=== PATIENT | female | born 1930 | race Caucasian/White ===

== ENCOUNTER → 2017-03-17 | Outpatient (CLI) | payer OTHER | LOC: CIMAGING 11:32 | PROVIDERS: ATTEND Internal Medicine | DX: M51.36 Other intervertebral disc degeneration, lumbar region (principal); M51.35 Other intervertebral disc degeneration, thoracolumbar region; M43.16 Spondylolisthesis, lumbar region; M43.17 Spondylolisthesis, lumbosacral region | CPT/HCPCS: 72100-PO; 73502-PO ==

== ENCOUNTER → 2017-05-14 | Outpatient (CLI) | payer OTHER | LOC: FIMAGING 14:38 | PROVIDERS: ATTEND Internal Medicine | DX: Z12.31 Encounter for screening mammogram for malignant neoplasm of breast (principal) | CPT/HCPCS: G0202 ==

== ENCOUNTER 2017-12-18 14:41 | Emergency (ER) | payer OTHER ==
[2017-12-18 14:51] VITALS: RESP 16; TEMP 98.1; O2SAT 96
--- NOTE | 2017-12-18 14:55 | EDPHY ---
H & P Stated Complaint: slipped on ice, hit head, LOC HPI/ROS: CC: slip and fall HPI: This 87 year old female presents to the ER today by POV (drove herself) after slipping on the "at risk" ramp at her home where she lives independently. She states she went out to grain picker her newspaper around 9:30 a.m. and did not realize the ramp was slick. She fell and hit the back of her head. When she went back into the house she felt that there had been a time lapse of a short duration and she did not remember coming back into the house very clearly. She called to make an appointment with her primary care provider and they advised her to be seen in the emergency department. She has some posterior scalp discomfort. She takes low-dose aspirin every other day, her last dose being the day before yesterday. She denies any preceding symptoms such as headache, changes in vision, numbness, tingling, weakness, chest pain, palpitations, shortness of breath, or abdominal pain. She denies recent illness. She denies urinary symptoms. She does not have changes in her vision or a headache at the present time. She has no open wounds. She denies neck pain or extremity injury. She has chronic low back issues with left leg pain for which she has received three injections. Her low back feels "tired." since the fall. REVIEW OF SYSTEMS: Constitutional: No fever, no chills. Eyes: No discharge. ENT: No sore throat. Respiratory: No cough, no shortness of breath. Cardiac: No chest pain, no palpitations. Gastrointestinal: No abdominal pain, no vomiting. Genitourinary: No hematuria or dysuria. Musculoskeletal: Left hand tingling on and off in the mornings for the last few weeks. Chronic pain lateral aspect of left lower leg. Skin: No rashes. Neurological: No headache. Source: Patient Exam Limitations: No limitations - Medical/Surgical History PMH: Past medical history includes hypertension, glaucoma, urinary incontinence, sciatic back pain, macular degeneration, colon cancer in 1974, skin cancer Past surgical history includes hemicolectomy, skin cancer removal Family history significant for mother dying of cirrhosis at age 53 and father dying at age 72 from lung cancer Allergy to sulfa which causes a rash Medications include aspirin, calcium, Lortab prostate, lisinopril, multivitamin , vitamin-D and and an eye supplement Primary care provider is Dr. Serrano Other PMH: hypertension, orthopedic low back injection, - Social History Smoking Status: Never smoked Alcohol Use: Rarely Drug Use: None Additional Social History: . Lives alone. Family in area. - Physical Exam Exam: General Appearance: Alert, anxious. Head: Tenderness and mild STS right posterior scalp. Eyes: Pupils equal and round no pallor or injection. ENT: No hemotympanum. Mucous membranes moist. Neck: No midline tenderness. Back: Kyphoscoliosis. No bony step-offs. Respiratory: There are no retractions, lungs are clear to auscultation. Cardiovascular: Regular rate and rhythm. No murmur. Gastrointestinal: Abdomen is soft and nontender, no masses, bowel sounds normal. Neurological: Awake and alert, sensory and motor exams grossly normal. No focal deficits. Skin: Warm and dry, no rashes. Musculoskeletal: Moveable soft tissue lump c/w lipoma right axilla. No bony abnormality. No hip pain. Extremities are symmetrical, full range of motion. Psychiatric: Patient is oriented X 3, there is no agitation. DIFFERENTIAL DIAGNOSIS: After history and physical exam differential diagnosis was considered for but not limited to: mechanical fall, syncope, head contusion , stroke, intracranial hemorrhage, cervical spine degenerative changes, compression fracture, UTI Constitutional: Initial Vital Signs Temperature (C) 98.1 F 12/18/17 14:43 Heart Rate 114 H 12/18/17 14:43 Respiratory Rate 16 12/18/17 14:43 Blood Pressure 181/87 H 12/18/17 14:43 O2 Sat (%) 96 12/18/17 14:43 O2 Delivery Mode Room Air Allergies/Adverse Reactions: Sulfa (Sulfonamide Antibiotics) Allergy (Verified 12/18/17 14:51) Home Medications: Medication Instructions Recorded Aspirin 12/18/17 Calcium 12/18/17 Latanoprost 12/18/17 Lisinopril 12/18/17 Multi For Her Tablet 12/18/17 VITAMIN D 12/18/17 Medical Decision Making - Diagnostics EKG Interpretation: Normal sinus rhythm, heart rate 85, normal intervals, probable old inferior infarct. No EKG available for comparison. Imaging Results: Head CT showed a small high posterior scalp hematoma, atrophy with minimal white matter disease. Cervical spine CT showed no acute fracture or soft tissue swelling. Severe degenerative disc disease. Lumbar spine/pelvis showed scoliosis, no acute fracture, severe constipation, atherosclerosis. Imaging: Discussed imaging studies w/ call center specialist Radiologist ED Course/Re-evaluation: The patient was seen and examined. Vital signs reviewed. The patient's EKG showed a normal sinus rhythm and an old inferior infarct. No prior EKG was available to me for comparison. She declined blood or urine studies. The patient's head CT showed a small high posterior scalp hematoma as well as atrophy and minimal white matter disease but no other significant findings. Her cervical spine CT was negative for acute fracture, soft tissue swelling, but remarkable for severe degenerative disc disease. Her lumbar spine and pelvic films showed scoliosis, severe constipation and atherosclerosis, no acute fracture. The patient was informed of all of these findings. She was advised to follow up with her primary care provider regarding the old infarct on her EKG, the degenerative changes of her cervical spine, the lipoma in her right axillary region, and her ongoing concerns regarding the continued discomfort in her left lower leg. She continues to be hypertensive in the emergency department and was advised to discuss this with her primary care provider in follow-up next week. She states she has white coat hypertension. She does have a blood pressure cuff at home and was advised she could take an additional 1/2 to 1 tablet of her (20mg) lisinopril should her blood pressure remain in the 190s systolic until she sees her primary care provider. She was advised that despite her negative head CT, that should she developed a headache or visual disturbanc in the next few weeks she should be rechecked immediately. She was also advised to drink plenty of fluids and consider a laxative. Departure - Departure Disposition: Home, Routine, Self-Care Clinical Impression: Fall on same level due to ice and snow, initial encounter, Head contusion, Lipoma of axilla, Constipation, Hypertension Condition: Good Instructions: Fall Prevention for Older Adults (ED), Scalp Contusion in Adults (ED), Lipoma (ED) Additional Instructions: Follow up with your primary care doctor early next week. Your blood pressure is elevated. You may need your blood pressure medication increased. Drink plenty of fluids and consider a laxative for constipation seen on your x-ray. Return to the ER immediately if you have any further problems or concerns as discussed. Referrals: Claudio Kaba MD [Primary Care Provider] - 2-3 days, call for appt.
--- NOTE | 2017-12-18 16:03 | CPEKG ---
Heart Rate: 85 RR Interval: 706 P-R Interval: 124 QRSD Interval: 72 QT Interval: 364 QTC Interval: 433 P Mcdaniels: 33 QRS Mcdaniels: -22 T Wave Mcdaniels: 15 EKG Severity - ABNORMAL ECG - EKG Impression: SINUS RHYTHM EKG Impression: PROBABLE INFERIOR INFARCT, AGE INDETERMINATE Electronically Signed By: Soumya Tillman 20-Dec-2017 00:31:51
[2017-12-18 17:38] VITALS: BP 192/91; PULSE 104
== END 2017-12-18 18:17 | disposition home or self-care (01) ==
LOC: CED 14:41
DX: S00.83XA Contusion of other part of head, initial encounter (principal); K59.00 Constipation, unspecified; I10 Essential (primary) hypertension; D17.9 Benign lipomatous neoplasm, unspecified; Z85.828 Personal history of other malignant neoplasm of skin; Z85.038 Personal history of other malignant neoplasm of large intestine; W01.198A Fall on same level from slipping, tripping and stumbling with subsequent striking against other object, initial encounter
CPT/HCPCS: 70450-PO; 72100-PO; 72125-PO; 72170-PO

== ENCOUNTER 2018-02-10 15:08 | Inpatient (IN) | payer OTHER ==
--- NOTE | 2018-02-10 16:48 | CPEKG ---
Heart Rate: 82 RR Interval: 732 P-R Interval: 112 QRSD Interval: 84 QT Interval: 376 QTC Interval: 439 P Waverly: 28 QRS Waverly: -20 T Wave Waverly: 33 EKG Severity - OTHERWISE NORMAL ECG - EKG Impression: SINUS RHYTHM EKG Impression: BORDERLINE LEFT AXIS DEVIATION Electronically Signed By: Rach Delgadillo 10-Feb-2018 21:07:16
[2018-02-10 16:58] LABS: PLATELET COUNT 187 10^3/uL (150-400)
--- NOTE | 2018-02-10 17:37 | EDPHY ---
H & P Time Seen by Provider: 02/10/18 15:58 HPI/ROS: CHIEF COMPLAINT: Confusion HISTORY OF PRESENT ILLNESS: 87-year-old female presents with a 2 week history of confusion. She slipped and fell 3 weeks ago and struck her head on an icy patch. She was seen at the [facility] and had a negative CT scan of the brain. However since then, her family has noticed that she is not as sharp as usual. She lives in own home and has been able to care for herself, but seems to be sometimes confused and not able to carry on a complex conversation. She denies headache or subsequent fall. She takes aspirin daily. No other anticoagulants. REVIEW OF SYSTEMS: Constitutional: No fever, no chills Eyes: No visual changes ENT: No sore throat Respiratory: No cough, no shortness of breath Cardiac: No chest pain Gastrointestinal: No nausea, no vomiting, no abdominal pain Genitourinary: no dysuria Musculoskeletal: No leg pain or swelling Skin: No rash Neurological: No headache, no numbness, no weakness Psychiatric: No depression Past Medical/Surgical History: Hypertension Social History: Lives alone in own home Smoking Status: Never smoked Physical Exam: General Appearance: Alert, pleasant, does not appear confused Eyes: Pupils equal and round, no conjunctival pallor or injection ENT, Mouth: Mucous membranes moist Neck: Normal inspection Respiratory: Lungs are clear to auscultation Cardiovascular: Regular rate and rhythm Gastrointestinal: Abdomen is soft and nontender Neurological: Alert, oriented x3, cranial nerves II through XII intact, motor 5 /5, sensory intact to light touch, slow and steady gait Skin: Warm and dry, no rash Extremities: Nontender, no pedal edema Psychiatric: Mood and affect normal Constitutional: Initial Vital Signs Temperature (C) 36.5 C 02/10/18 15:29 Heart Rate 90 02/10/18 15:29 Respiratory Rate 18 02/10/18 15:29 Blood Pressure 177/85 H 02/10/18 15:29 O2 Sat (%) 95 02/10/18 15:29 O2 Delivery Mode Room Air Allergies/Adverse Reactions: Sulfa (Sulfonamide Antibiotics) Allergy (Verified 02/10/18 17:58) Home Medications: Medication Instructions Recorded Aspirin EC [Aspirin EC 81 mg (*)] 81 mg PO DAILY 12/18/17 Cholecalciferol Vit D3 [Vitamin D3 1,000 units PO DAILY 12/18/17 (*)] Herbals/Supplements -Info Only 1 ea PO DAILY 12/18/17 Latanoprost 0.005% [Xalatan 0.005% 1 drop EACHEYE HS 12/18/17 (*)] Lisinopril [Zestril 10 mg (*)] 10 mg PO DAILY 12/18/17 Multivitamins [Multivitamin (*)] 1 each PO DAILY 12/18/17 Medical Decision Making - Diagnostics Imaging Results: Chest X-Ray 02/10/18 16:18 Impression: Findings consistent with airways disease are seen with no superimposed pneumonia identified. Head CT 02/10/18 16:18 Impression: There are large bilateral subdural hematomas with predominantly subacute components, although there are some superimposed acute foci of hemorrhage. There is associated supratentorial mass effect on the ventricular system, and mild [id number] subfalcine shift (but no evidence of wally uncal or transtentorial herniation at this time). Neurosurgical consultation is suggested. If there is further clinical concern regarding the patient's symptoms, MR imaging is suggested, if not otherwise contraindicated. Findings were discussed with JACQUELINE AMARO MD at 16:59, on 02/10/2018. ED Course/Re-evaluation: This patient presents with a 2 week history of confusion and decline in intellect after a head injury. Neurologic exam is normal. Stat CT scan of the head reveals bilateral large subdural hematomas. d/w pt and family again, no recurrent fall and ASAx2 doses only. Informed of CT scan report. Repeat neurologic exam is normal. Dr. Brittaney Haynes was consulted and will see the patient. Platelets IV given. Patient will be admitted to step-down. Neurologic exam remained unchanged throughout. I spent a total of 35 minutes of critical care time in obtaining history, performing a physical exam, bedside monitoring of interventions, collecting and interpreting tests and discussion with consultants but not including time spent performing procedures. Differential Diagnosis: Altered mental status including but not limited to hypoglycemia, infectious process, electrolyte abnormality, head injury, CVA, and intoxicants. - Data Points Laboratory Results: Laboratory Results 02/10/18 16:49 02/10/18 16:49 Medications Given: Acetaminophen (Tylenol) 650 mg PO Q4HRS PRN PRN Reason: Pain, Mild/Fever, Can Take PO Stop: 08/09/18 18:09 Last Admin: 02/11/18 17:42 Dose: 650 mg Hydrocodone Bitart/Acetaminophen ([place] 5/325) 1 tab PO Q6H PRN PRN Reason: Pain, Moderate Able to Take PO Stop: 02/21/18 16:53 Last Admin: 02/11/18 21:22 Dose: 1 tab Cholecalciferol (Vitamin D) 1,000 units PO DAILY KILLIAN Stop: 08/10/18 08:59 Last Admin: 02/12/18 08:16 Dose: 1,000 units Famotidine (Pepcid) 20 mg PO DAILY KILLIAN Stop: 08/10/18 08:59 Last Admin: 02/12/18 08:16 Dose: 20 mg Sodium Chloride (Ns) 1,000 mls @ 75 mls/hr IV CONT KILLIAN Stop: 08/09/18 18:14 Last Admin: 02/11/18 16:40 Dose: 1,000 mls Nicardipine/Sodium Chloride (Cardene 0.1 Mg/Ml (Premix)) 200 mls @ 0 mls/hr IV CONT KILLIAN; Titrate PRN Reason: Protocol Stop: 08/09/18 21:29 Last Admin: 02/11/18 17:13 Dose: 200 mls Latanoprost (Xalatan 0.005%) 1 drops EACHEYE HS [facility] Stop: 08/09/18 20:59 Last Admin: 02/11/18 20:04 Dose: 1 drop Levetiracetam (Keppra) 750 mg PO BID KILLIAN Stop: 08/10/18 20:59 Last Admin: 02/12/18 08:14 Dose: 750 mg Lisinopril (Zestril) 10 mg PO DAILY KILLIAN Stop: 08/10/18 08:59 Last Admin: 02/12/18 08:15 Dose: 10 mg Ondansetron HCl (Zofran) 4 mg IVP Q4HRS PRN PRN Reason: Nausea/Vomiting, Can't Take PO Stop: 08/10/18 16:16 Last Admin: 02/11/18 19:20 Dose: 4 mg Tranexamic Acid (Tranexamic Acid) 650 mg PO BID KILLIAN Stop: 08/10/18 20:59 Last Admin: 02/12/18 08:15 Dose: 650 mg Discontinued Medications Bacitracin (Bacitracin Ointment Tube) Confirm Administered Dose 14.2 jessie TP .[facility] ONE Stop: 02/11/18 13:24 Last Admin: 02/11/18 15:32 Dose: 14.2 gr Bupivacaine HCl (Sensorcaine 0.25% Sdv) Confirm Administered Dose 30 ml .ROUTE .[facility] ONE Stop: 02/11/18 13:26 Last Admin: 02/11/18 14:49 Dose: 30 ml Bupivacaine HCl (Sensorcaine 0.25% Sdv) Confirm Administered Dose 30 ml .ROUTE .[facility] ONE Stop: 02/11/18 14:27 Last Admin: 02/11/18 14:50 Dose: 30 ml Bupivacaine HCl (Sensorcaine 0.25% Sdv) Confirm Administered Dose 30 ml .ROUTE .[facility] ONE Stop: 02/11/18 14:30 Last Admin: 02/11/18 15:34 Dose: Not Given Chlorhexidine Gluconate (Hibiclens) Confirm Administered Dose 1 btl TP .[facility] ONE Stop: 02/11/18 13:58 Last Admin: 02/11/18 14:53 Dose: 1 btl Epinephrine HCl (Epinephrine) Confirm Administered Dose 1 mg .ROUTE .[facility] ONE Stop: 02/11/18 13:26 Last Admin: 02/11/18 14:54 Dose: 0.3 mg Gentamicin Sulfate (Garamycin) Confirm Administered Dose 80 mg .ROUTE .[facility] ONE Stop: 02/11/18 13:25 Last Admin: 02/11/18 14:54 Dose: 80 mg Gentamicin Sulfate (Garamycin) Confirm Administered Dose 80 mg .ROUTE .[facility] ONE Stop: 02/11/18 13:28 Last Admin: 02/11/18 14:55 Dose: 80 mg Gentamicin Sulfate (Garamycin) Confirm Administered Dose 80 mg .ROUTE .[facility] ONE Stop: 02/11/18 13:44 Last Admin: 02/11/18 14:56 Dose: Not Given Gentamicin Sulfate (Garamycin) Confirm Administered Dose 80 mg .ROUTE .[facility] ONE Stop: 02/11/18 15:12 Last Admin: 02/11/18 16:39 Dose: Not Given Cefazolin Sodium (Cefazolin Syringe) 2 gm in 20 mls @ 200 mls/hr IVP ONCALL ONE PRN Reason: Protocol Stop: 02/11/18 08:51 Last Admin: 02/11/18 09:43 Dose: Not Given Cefazolin Sodium (Cefazolin Syringe) 2 gm in 20 mls @ 200 mls/hr IVP ONCALL ONE PRN Reason: Protocol Stop: 02/11/18 14:05 Last Admin: 02/11/18 14:20 Dose: 20 mls Lactated Ringer's (Lr) 1,000 mls @ 0 mls/hr IV ONCE ONE; TKO PRN Reason: Protocol Stop: 02/11/18 13:45 Last Admin: 02/11/18 16:39 Dose: Not Given Cefazolin Sodium/Dextrose (Ancef 1 Gm (Premix)) 50 mls @ 200 mls/hr IV Q8HRS KILLIAN PRN Reason: Protocol Stop: 02/12/18 06:14 Last Admin: 02/12/18 05:31 Dose: 50 mls Mannitol (Mannitol 20% (Premix)) Confirm Administered Dose 100 gm IV .STK-MED ONE Stop: 02/11/18 13:24 Last Admin: 02/11/18 14:56 Dose: Not Given Microfibrillar Collagen Hemostat (Avitene Powder) Confirm Administered Dose 1 gm TP .STK-MED ONE Stop: 02/11/18 13:27 Last Admin: 02/11/18 16:39 Dose: Not Given Povidone Iodine (Betadine) Confirm Administered Dose 30 jessie TP .STK-MED ONE Stop: 02/11/18 13:25 Last Admin: 02/11/18 14:56 Dose: Not Given Thrombin (Thrombin-Jmi) Confirm Administered Dose 5,000 unit TP .STK-MED ONE Stop: 02/11/18 13:24 Last Admin: 02/11/18 14:56 Dose: 5,000 unit Departure - Departure Disposition: [facility] Acute Clinical Impression: Bilateral subdural hematomas Condition: Serious
[2018-02-10 18:04] LABS: INR 1.03 (0.83-1.16); PROTIME(PATIENT) 13.7 SEC (12.0-15.0)
[2018-02-10] MEDS ORDERED: NS 1,000 ML IV SCH (18:15)
--- NOTE | 2018-02-10 20:45 | GHP ---
[f rep st] HISTORY AND PHYSICAL DATE OF ADMISSION: 02/10/2018 CHIEF COMPLAINT: Confusion. HISTORY OF PRESENT ILLNESS: This is a very pleasant 87-year-old female, who is very independent, as matter of fact, was able to locate a 30,000 dollar mistake her CPA made on her taxes this year, who h ad a fall approximately 2 to 2-1/2 weeks ago and was seen. Had a negative head CT and has been relat ively asymptomatic. Her family noticed that she is not quite herself, having some word finding diffi culties, maybe dropping some objects. She has run her car into the garage a couple of times, and see ms to just not be as sharp as she was, so they brought her into the emergency department for evaluati on, where she was found to have very large subacute on chronic subdural hematomas with approximately 3 mm of [id number]-[id number] shift. The patient notes some word finding difficulties. Denies any headache, nausea, vomiting. She has some baseline back pain, leg pain, and some numbness and tingling in her legs, baseline and she is treated by [facility] for lumbar pain. She had recently stopped taking bettina e Advil for her pain and she does take an aspirin daily. She otherwise denies any major complaints a t this point in time. PAST MEDICAL HISTORY: Positive for hypertension. SOCIAL HISTORY: She does live alone in her own home. Smoking: She does not smoke. She occasionall y, very rarely drinks alcohol. She does not use any other illicit drugs. She does have family at be dside. FAMILY HISTORY: She has no significant family history of bleeding dyscrasias or other contributory i llnesses. SURGICAL HISTORY: She has had a colectomy many years ago. MEDICATIONS: Home medications include: 1. Tylenol. 2. Vitamin D. 3. Pepcid. 4. Xalatan. 5. Zestril. 6. Aspirin. 7. Multivitamin. 8. Some type of herbal supplement. ALLERGIES: She has allergies to sulfa. REVIEW OF SYSTEMS: A complete 10-point review of systems was performed by myself, was negative excep t as stated above. PHYSICAL EXAMINATION: VITAL SIGNS: Blood pressure is 133/75, heart rate is 77, respiratory rate is 15, saturating 96% on room air, temp is 36.6 degrees Celsius. GENERAL: She is alert and oriented x3 . Pupils are equal, round, reactive to light and accommodation. External ocular muscles are intact. There is no facial asymmetry or tongue deviation. She does have some word-finding difficulties and some mild difficulty with some questions that are complex. Her strength is 5/5 to bilateral deltoid s, biceps, triceps, wrist flexors, wrist extensors, hand intrinsics, iliopsoas, quadriceps, hamstring s, dorsiflexors, plantar flexors, EHLs. DTRs are +2/4 at biceps, brachioradialis, patellar, and Achi lles. There is no Cavanaugh's. There is no clonus and she may have some mild left drift, although thi s is subtle at best. Sensation is intact to all dermatomal distributions in the upper and lower extr emities bilaterally. LABORATORY DATA: Sodium is 141, potassium 4.4, chloride 105, CO2 of 24, BUN 22, creatinine 0.8, gluc ose 98. White blood cell count 8.31, hemoglobin 13.1, hematocrit 39.1, platelets are 187, PT is 13.7 , INR is 1.03, PTT is 26.9. UA has 1+ blood, otherwise negative. IMAGING: Head CT reveals large bilateral extra-axial, predominantly isodense collections with some m ore focal areas of hyperdense attenuation that are consistent with subacute subdural hematomas. On t he left the transverse diameter is 2.7 cm, on the right is 2.1 cm. There is some mass effect on the brain with mass effect on the ventricles, and also some 4 mm of left to right shift. There is some c alcification along the foramen of Luschka at the skull base, and some chronic mucosal thickening in t he floor of the right maxillary sinus with a polyp versus mucous retention cyst, and also some period ontal lucency. IMPRESSION AND PLAN: This is an 87-year-old female on a small aspirin, who has rather large subacute subdural hematomas with a little bit of shift and some mental status changes. At this point in time , she does not require emergent surgical intervention, however, I did talk to her and her family abou t bilateral mini craniotomies for evacuation. I do not believe that bur holes would be effective in this case, given the attenuation of the blood. Mini craniotomies approximately 2 o'clock tomorrow, u nlleesa she were to decline tonight. We had a long discussion regarding the risks, benefits, and alter natives to this and she and her family will think about this. We will leave her tentatively on the s chedule. At this point, she will be n.p.o. after midnight. She will be admitted to the ICU with hea d of bed greater than 30 degrees to step-down with q.2 hours neuro checks, and we will reverse her as pirin with platelets, and follow her. She will discuss with our PA in the morning whether or not she wants to move forward, but we will maintain this tentative schedule. Please call with any changes i n neurologic status. /[id number]/MODL
[2018-02-10] MEDS: LATANOPROST 0.005% 2.5 ML OPHT DROPS EACHEYE SCH (22:08)
[2018-02-11] MEDS: CHOLECALCIFEROL VIT D3 1,000 UNITS TAB PO SCH (08:06)
[2018-02-11] MEDS: LISINOPRIL 10 MG TAB PO SCH (08:06)
[2018-02-11] MEDS: FAMOTIDINE 20 MG TAB PO SCH (08:07)
--- NOTE | 2018-02-11 08:45 | SOAPPROG ---
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 Objective: Vital Signs Temp Pulse Resp BP Pulse Ox 36.6 C 70 17 141/48 H 99 02/11/18 04:00 02/11/18 07:30 02/11/18 07:30 02/11/18 08:06 02/11/18 07:30 02/10/18 02/11/18 02/12/18 05:59 05:59 05:59 Intake Total 787 Balance 787 PT 13.7 SEC (12.0-15.0) 02/10/18 17:47 INR 1.03 (0.83-1.16) 02/10/18 17:47 AAOx4, +FC PERRL, EOMI, no facial droop DEVORAH x 4 + light touch ICD10 Worksheet Patient Problems: Problems Problem Status Onset Bilateral subdural hematomas Acute
[2018-02-11] MEDS ORDERED: ceFAZolin 2 GM/SWFI 2 GM/20 ML SYR IVP ONE ×2 (08:46→14:00)
[2018-02-11] MEDS: niCARdipine/NACL 200 ML IV SCH ×2 (09:43→17:13)
--- NOTE | 2018-02-11 10:42 | PDMN ---
Medical Necessity Medical necessity: est los>2mn for large subacute subdural hematomas with small shift, and mental status changes; admit to ICU for q2hr neuro checks, platelets for aspirin reversal, and likely bilateral mini craniotomies; per order 02/11/18 and H&P 02/10/18
--- NOTE | 2018-02-11 12:03 | ASMTCASEMG ---
Living Arrangements What is your living Answers: Alone arrangement? Who do you live with? Type Of Residence What kind of residence do Answers: House you live in? Discharge Plan Comments Coordination Status Comments Notes: Patient is an 87yo female who lives independently in [place]. Patient's family noticed she was having word finding difficulties, dropping some objects, and had run her car into the garage so they brought her to the ER for evaluation. Patient had a fall 2 weeks ago and was seen but her CT scan had been negative. 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 PT/RESTAURANT INSPECTOR have been ordered. D/C plan TBD. CM will follow. Date Signed: 02/11/2018 12:02 PM Electronically Signed By:Kristyn Galo LCSW
[2018-02-11] MEDS ORDERED: THROMBIN (BOVINE) 5,000 UNIT VIAL TP ONE (13:23)
[2018-02-11] MEDS ORDERED: BACITRACIN ZINC 14.2 GM OINTTUBE TP ONE (13:23)
[2018-02-11] MEDS ORDERED: MANNITOL 20% 100 GM/500 ML BAG IV ONE (13:23)
[2018-02-11] MEDS ORDERED: GENTAMICIN SULFATE 80 MG/2 ML VIAL ONE ×4 (13:24→15:11)
[2018-02-11] MEDS ORDERED: POVIDONE-IODINE 30 GM OINTTUBE TP ONE (13:24)
[2018-02-11] MEDS ORDERED: BUPIVACAINE 0.25% 30 ML SDV ONE ×3 (13:25→14:29)
[2018-02-11] MEDS ORDERED: AVITENE POWDER 1 GM JAR TP ONE (13:26)
[2018-02-11] MEDS ORDERED: LR 1,000 ML IV ONE (13:44)
--- NOTE | 2018-02-11 13:54 | PDANEPAE ---
ANE History of Present Illness B mini craniotomies ANE Past Medical History Past Medical History: glaucoma - Cardiovascular History Hx Hypertension: Yes - Pulmonary History Hx Oxygen in Use at Home: No Hx Sleep Apnea: No Sleep Apnea Screening Result - Last Documented: Negative - Endocrine History Hx Diabetes: No ANE Review of Systems Review of Systems: some decreased mental acuity, subacute ANE Patient History - Allergies Allergies/Adverse Reactions: Sulfa (Sulfonamide Antibiotics) Allergy (Verified 02/10/18 17:58) - Home Medications Home medications: home medication list seen and reviewed Home Medications: Aspirin EC [Aspirin EC 81 mg (*)] 81 mg PO DAILY 12/18/17 [Last Taken 02/10/18] Cholecalciferol Vit D3 [Vitamin D3 (*)] 1,000 units PO DAILY 12/18/17 [Last Taken 02/10/18] Herbals/Supplements -Info Only 1 ea PO DAILY 12/18/17 [Last Taken 02/10/18] Latanoprost 0.005% [Xalatan 0.005% (*)] 1 drop EACHEYE HS 12/18/17 [Last Taken 02/09/18] Lisinopril [Zestril 10 mg (*)] 10 mg PO DAILY 12/18/17 [Last Taken 02/10/18] Multivitamins [Multivitamin (*)] 1 each PO DAILY 12/18/17 [Last Taken Unknown] - NPO status NPO Since - Liquids (Date): 02/11/18 NPO Since - Liquids (Time): 08:00 NPO Since - Solids (Date): 02/12/18 NPO Since - Solids (Time): 10:00 - Smoking Hx Smoking Status: Never smoked ANE Labs/Vital Signs - Labs Result Diagrams: 02/10/18 16:49 02/10/18 16:49 - Vital Signs Blood Pressure: 98/57 Heart Rate: 94 Respiratory Rate: 20 O2 Sat (%): 96 Height: 152.4 cm Weight: 55 kg ANE Physical Exam - Airway Neck exam: FROM Mallampati Score: Class 2 Mouth exam: normal dental/mouth exam - Pulmonary Pulmonary: no respiratory distress - Cardiovascular Cardiovascular: regular rate and rhythym - ASA Status ASA Status: III ANE Anesthesia Plan Anesthesia Plan: general endotracheal anesthesia
[2018-02-11] MEDS ORDERED: CHLORHEXIDINE GLUC HIBICLENS 118 ML BTL TP ONE (13:57)
[2018-02-11] MEDS ORDERED: ONDANSETRON 4 MG/2 ML VIAL ONE (14:11)
[2018-02-11] MEDS ORDERED: LIDOCAINE 2% 100 MG/5 ML SYR ONE (14:11)
[2018-02-11] MEDS ORDERED: DEXAMETHASONE 4 MG/ML VIAL ONE (14:11)
[2018-02-11] MEDS ORDERED: PROPOFOL 200 MG/20 ML VIAL ONE (14:12)
[2018-02-11] MEDS ORDERED: fentaNYL 100 MCG/2 ML INJ ONE (14:12)
[2018-02-11] MEDS ORDERED: DEXAMETHASONE 4 MG/ML VIAL IVP PRN (15:05)
[2018-02-11] MEDS ORDERED: MEPERIDINE 25 MG/ML SYR IVP PRN (15:05)
[2018-02-11] MEDS ORDERED: ONDANSETRON 4 MG/2 ML VIAL IVP PRN (15:05)
[2018-02-11] MEDS ORDERED: oxyCODONE IR 5 MG TAB PO PRN (15:05)
[2018-02-11] MEDS ORDERED: NALOXONE HCL 0.4 MG/ML INJ IVP PRN (15:05)
[2018-02-11] MEDS ORDERED: HYDROmorphONE/DILAUDID 1 MG/ML INJ IVP PRN (15:05)
[2018-02-11] MEDS ORDERED: HYDROCODONE/APAP 5/325 TAB PO PRN ×2 (15:05→16:54)
[2018-02-11] MEDS ORDERED: LABETALOL HCL 5 MG/ML 20 ML MDV IVP PRN (15:05)
[2018-02-11] MEDS ORDERED: fentaNYL 100 MCG/2 ML INJ IVP PRN (15:05)
[2018-02-11] MEDS ORDERED: ACETAMINOPHEN 500 MG TAB PO PRN (15:05)
--- NOTE | 2018-02-11 15:08 | POSTANESTH ---
Post Anesthetic Evaluation Cardiovascular Status: Normal, Stable, Similar to Pre-Op Cond Respiratory Status: Normal, Stable, Similar to Pre-op Cond. Level of Consciousness/Mental Status: Can Participate in Eval, Mildly Sleepy, Arousable Pain Control: Adequate, Prn Tx Ordered Nausea/Vomiting Control: Adequate, Prn Tx Ordered Complications Possibly Related to Anesthesia: None Noted
[2018-02-11] MEDS ORDERED: BISACODYL 10 MG SUPP PR PRN (16:17)
[2018-02-11] MEDS ORDERED: LACTULOSE 20 GM/30 ML UDCUP PO PRN (16:17)
[2018-02-11] MEDS ORDERED: POLYETHYLENE GLYCOL 3350 17 GM PKT PO PRN (16:17)
[2018-02-11] MEDS ORDERED: MAGNESIUM HYDROXIDE 30 ML UDCUP PO PRN (16:17)
--- NOTE | 2018-02-11 16:44 | GOP ---
[f rep st] OPERATIVE REPORT DATE OF OPERATION: 02/11/2018 SURGEON: Brittaney Haynes DO NEUROSURGEON: Brittaney Haynes DO. LINEN ATTENDANT: PADMINI Resendez. PREOPERATIVE DIAGNOSIS: Subacute bilateral subdural hematomas. POSTOPERATIVE DIAGNOSIS: Subacute bilateral subdural hematomas. PROCEDURE PERFORMED: Bilateral craniotomy evacuation of subacute subdural hematoma. FINDINGS: SPECIMENS: None. ESTIMATED BLOOD LOSS: 100 mL. INDICATIONS: This is an 87-year-old female with very large bilateral subacute subdural hematomas, wh o was offered surgical decompression. Craniotomy was required as the subacute nature of the blood pr oduct would not allow for bur hole drainage. DESCRIPTION OF PROCEDURE: She was identified, consented, sites were marked. Brought to the operatin g room, anesthetized under general trachea anesthesia. Hair was clipped with the OR clippers and the incision sites were marked. She was prepped and draped in the usual sterile fashion. Bilateral inc isions were anesthetized with 0.5% Marcaine with epinephrine. Incisions were made with a 10 blade an d hemostasis was obtained with bipolar and Parish clips. We used a periosteal elevator to elevate the periosteum around the cerebellar retractors. Drilled bur hole anteriorly bilaterally and then compl eted this with craniotome to remove a small approximately 4 cm x 3 cm craniotomy flap. These were ke pt in the appropriate configuration on the back table. Tack-ups were performed on the right side as there was some epidural bleeding in this space using the wire pass and 4-0 Nurolon. We then simultan eously opened the dura bilaterally and got immediate egress of some blood products and some organized blood product, opened the membrane but did not strip membranes and then copiously irrigated with jessie roximately 3-4 L of gentamicin infused saline until all of the irrigation ran clear bilaterally. We then placed trocar ventricular-type drains out bilaterally and placed them in the subdural space. Re approximated the dura with 4-0 Nurolon. Placed DuraGen and replaced the bone flap with Synthes plate s and screws, verifying that each of the drains easily was removable. We then copiously irrigated ag ain with gentamicin infused saline, closed the galea bilaterally with 2-0 Vicryl pop-offs. The skin was closed with randy. The drains were sutured in with Vicryl and her hair was washed and then the wounds were dressed with bacitracin and Telfa stapled down. The drains were connected in the approp riate configuration to the Bhakta bags and she was extubated and transported to the ICU with no diffi culty. FLUIDS: 600 mL of crystalloid. URINE OUTPUT: None. DRAINS: Two ventricular-type drains in the subdural space. The Bhakta bags to passive drainage. COMPLICATIONS: None. /[id number]/MODL
--- NOTE | 2018-02-11 16:54 | GPROG ---
[f rep st] PROGRESS NOTE POSTOPERATIVE NOTE. DATE OF SERVICE: 02/11/2018 SUBJECTIVE: Patient doing well postoperatively status post bilateral mini craniotomy evacuation of s ubdural hematomas, with placement of Bhakta bags. She denies any complaints and is following all com mands in the ICU. OBJECTIVE: VITAL SIGNS: Blood pressure is 113/74, heart rate is 94, has 100% oxygen via face mask o n for expected pneumocephalus. NEUROLOGIC: She is alert, answering some questions with hand signals but not speaking just yet. Follows all commands. Strength-mason with slightly poor effort but moves equally bilateral upper and lower extremities all muscle groups. Drains are in the appropriate conf iguration and will be alternated open 1 hour each and then closed in an alternating fashion. Pupils are equal, round, reactive to light and accommodation. External ocular muscles are intact. There is no facial asymmetry. IMPRESSION AND PLAN: This is an 87-year-old female, status post bilateral craniotomy for evacuation of subdural hematoma. Doing well in the ICU. Again we will alternate her drains open below the leve l of the ear, 1 hour each time. Wearing oxygen by face mask as long as can be tolerated, but at leas t alternating 1 hour on, 1 hour off. Neuro checks q.1 hour. Keep systolic blood pressure less than 160, avoid any sedating medications if at all possible. We will use Keppra while the drains are in p lace. Please call with any changes in neurologic status. /[id number]/MODL
[2018-02-11] MEDS: ACETAMINOPHEN 325 MG TAB PO PRN (17:42)
[2018-02-11] MEDS: ONDANSETRON 4 MG/2 ML VIAL IVP PRN (19:20)
[2018-02-11] MEDS: levETIRAcetam 500 MG TAB PO SCH (20:01)
[2018-02-11] MEDS: TRANEXAMIC ACID 650 MG TAB PO SCH (20:01)
[2018-02-11] MEDS: LATANOPROST 0.005% 2.5 ML OPHT DROPS EACHEYE SCH (20:04)
--- NOTE | 2018-02-11 23:20 | GCON ---
[f rep st] CONSULTATION CRITICAL CARE CONSULTATION DATE OF CONSULTATION: 02/11/2018 REASON FOR CONSULTATION: Intensive care unit evaluation and management following drainage of bilater al subdural hematomas. HISTORY: The patient is a pleasant and independent 87-year-old, who was admitted yesterday for incre asing confusion. She fell approximately 2 months ago and was evaluated at that time in the emergency department. CT scan of the head was done, which was negative for intracranial pathology. She had s ome atrophy and some minimal white matter disease noted. She was admitted yesterday with increasing neurologic changes that had been present for several days. CT scan showed subacute subdural hematoma s bilaterally with a larger collection on the left with a 3 mm left to right shift. She was taken to the operating room today, and craniotomy performed for drainage of the subdurals bilaterally. She w as returned to the intensive care unit in good condition. Drains were left in the subdural spaces bi laterally. There were no complications. Estimated blood loss was 100 mL. MEDICATIONS: Current medications include Keppra, cefazolin, famotidine, hydrocodone, lisinopril, and nicardipine as needed for blood pressure. Clinically, she is doing well. Medications prior to admi ssion included lisinopril and aspirin. PAST MEDICAL HISTORY: Remarkable for systemic hypertension. PAST SURGICAL HISTORY: Partial colectomy. DRUG ALLERGIES: Sulfa preparations. SOCIAL HISTORY: The patient lives alone and is independent. Tobacco and alcohol are negative. Supp ortive family is in [place]. FAMILY HISTORY: Noncontributory. REVIEW OF SYSTEMS: A 10-point review of systems was negative except as mentioned above. PHYSICAL EXAMINATION: GENERAL: Reveals a pleasant woman, who is status post craniotomy. VITAL SIGN S: Blood pressure is 124/58, heart rate 85 with sinus rhythm on the monitor. Respiratory rate is 18 . She is on a simple mask at 10 L for pneumocephalus. Saturations are 100%. HEENT: Remarkable for the postsurgical changes with drains in place. HEENT is unremarkable for lymphadenopathy or thyrome danny. Mucous membranes are moist. Pupils appear equal. CHEST: Clear. HEART: Regular in rate and rhythm. There is a systolic murmur. ABDOMEN: Soft, nontender. Bowel sounds are present. EXTREMI TIES: Unremarkable for significant edema. SKIN: Without lesions or rash. NEUROLOGIC: Grossly non focal. She is having problems with expressive aphasia and word finding. DATABASE: White blood cell count is 8000, hematocrit 39, platelets normal. PT and PTT were normal o n admission. Metabolic panel was normal. Urinalysis was negative. ASSESSMENT: 1. Bilateral subacute subdural hematomas, status post craniotomy and drainage. She is doing well po stoperatively. Expressive aphasia seems to be her main neurologic deficit at this time. Neurologic recovery will be needed before she can return home to independent living. I would anticipate that cassi slade will need inpatient rehab when she is ready for discharge. 2. History of hypertension. Blood pressures are normal at this point in time. She is being continu ed on her lisinopril. Nicardipine can be used for significant hypertension. PLAN/RECOMMENDATIONS: She will be kept in the intensive care unit and neurologic status monitored. Current medications will be continued. Pain will be managed with Tylenol and hydrocodone if needed. Keppra will be continued. Further plans and recommendations will be made based on her progress over the next 12-24 hours. /[id number]/MODL
--- NOTE | 2018-02-12 07:47 | NEUSURGPN ---
Date of Surgery: 02/11/18 Post Op Day: 1 Assessment/Plan: 87 yo female s/p bilateral cranitomy for subdural hematoma CT head 02/11: pneumocephalus present, improved bilateral subdural hematoma - neuro stable - maintain SBP < 160 - Keppra while drains in place - continue bilateral subdural drains, opening one drain at time, alternating every hour - continuous high flow oxygen - tranexamic acid BID - PT/OT - advance diet as tolerated Patient seen by myself and Dr. Haynes. Subjective: No headache, nausea, vomiting. Objective: Awake. Alert. PERRL. EOMI Facial expression symmmetrical Muscle strength full at 5/5 Incision with dressing c/d/i - Physician Patient Seen by .: [facility] Physical Exam - Vitals, I&O, Labs I and O 02/11/18 02/12/18 02/13/18 05:59 05:59 05:59 Intake Total 787 1323 Output Total 821 Balance 787 502 Weight 55 kg 55 kg Intake: Oral (ml) 200 750 IV Intake (ml) 261 IV Infused (ml) 587 312 Ns 1,000 ml @ 75 mls/hr 587 192 IV CONT KILLIAN Rx#: [id number] niCARdipine/NACL 200 ml @ 120 Titrate IV CONT KILLIAN Rx#: [id number] Output: Urine (ml) 650 Bedside Commode 650 CSF Drainage Amount 171 Left Ventriculostomy 63 Right Ventriculostomy 108 Other: Number of Voids Incontinence 1 Toilet 3 4 Number of Stools Bedside Commode 0 Toilet 1 Vital Signs Temp Pulse Resp BP Pulse Ox 37 C 70 15 128/54 H 95 02/12/18 00:00 02/12/18 06:00 02/12/18 06:00 02/12/18 06:00 02/12/18 06:00 ICD10 Worksheet Patient Problems: Problems Problem Status Onset Bilateral subdural hematomas Acute
[2018-02-12] MEDS: levETIRAcetam 500 MG TAB PO SCH ×2 (08:14→20:14)
[2018-02-12] MEDS: LISINOPRIL 10 MG TAB PO SCH (08:15)
[2018-02-12] MEDS: TRANEXAMIC ACID 650 MG TAB PO SCH ×2 (08:15→20:13)
[2018-02-12] MEDS: FAMOTIDINE 20 MG TAB PO SCH (08:16)
[2018-02-12] MEDS: CHOLECALCIFEROL VIT D3 1,000 UNITS TAB PO SCH (08:16)
--- NOTE | 2018-02-12 13:54 | PDINTPN ---
Senior Hr Manager Progress Note Assessment/Plan: Assessment: Subdural hematomas, status post bilateral craniotomy and drainage. Drains remain in place. On Keppra, transexamic acid. Neurologic status is improving. Hypertension. On lisinopril. Blood pressure is fine. Not requiring additional blood pressure control. Nutrition: Eating. GI prophylaxis: Famotidine DVT prophylaxis: SCDs. Plan: Continue care in the intensive care unit. Continue neuro checks, subdural drainage per orders from neuro surgery. Continue present medications. Follow-up laboratory in a.m.. 25 min of CC time spent directly with the patient. Discussed with nursing, the ICU multi disciplinary team. Subjective: Doing well, up in chair. Denies significant headache. Word-finding and verbal responses much better, clear, faster today. No obvious neurologic deficits. Objective: Vital Signs Temp Pulse Resp BP Pulse Ox 36.8 C 75 18 146/59 H 100 02/12/18 08:00 02/12/18 12:00 02/12/18 12:00 02/12/18 12:00 02/12/18 12:00 02/11/18 02/12/18 02/13/18 05:59 05:59 05:59 Intake Total 787 1323 Output Total 821 Balance 787 502 PT 13.7 SEC (12.0-15.0) 02/10/18 17:47 INR 1.03 (0.83-1.16) 02/10/18 17:47 CT head: Pneumocephalus in areas where subdurals were. Decreased shift Physical Exam - Physical Exam General Appearance: alert, no apparent distress, other (Up in chair) EENT: PERRL/EOMI, other (Drains in place bilaterally. Mask in place for oxygen) Neck: normal inspection (No JVD) Respiratory: lungs clear, decreased breath sounds (At bases), No respiratory distress, No rales Cardiac/Chest: regular rate, rhythm, systolic murmur, No gallop Abdomen: normal bowel sounds, non-tender, soft Skin: normal color, warm/dry Extremities: No pedal edema Neuro/Psych: no motor/sensory deficits (Grossly normal, moving everything relatively equally. Apparently ignoring right side somewhat by report.), cognition abnormalities (Improving) ICD10 Worksheet Patient Problems: Problems Problem Status Onset Bilateral subdural hematomas Acute
--- NOTE | 2018-02-12 14:46 | ASMTCMCOM ---
CM Note CM Note Notes: PT has requested an inpatient rehab eval for patient. Patient is recovering from the crani yesterday and her neurologic status is improving. Drains remain in place. Patient has been up in her chair. Notified [facility] about the request for inpatient rehab eval. CM will follow. Date Signed: 02/12/2018 02:46 PM Electronically Signed By:Kristyn Galo LCSW
[2018-02-12] MEDS: ACETAMINOPHEN 325 MG TAB PO PRN (19:31)
[2018-02-12] MEDS: LATANOPROST 0.005% 2.5 ML OPHT DROPS EACHEYE SCH (20:14)
[2018-02-13 04:54] LABS: PLATELET COUNT 155 10^3/uL (150-400)
[2018-02-13] MEDS: ACETAMINOPHEN 325 MG TAB PO PRN (08:05)
[2018-02-13] MEDS: levETIRAcetam 500 MG TAB PO SCH ×2 (08:06→20:08)
[2018-02-13] MEDS: TRANEXAMIC ACID 650 MG TAB PO SCH ×2 (08:06→20:08)
[2018-02-13] MEDS: CHOLECALCIFEROL VIT D3 1,000 UNITS TAB PO SCH (08:06)
[2018-02-13] MEDS: FAMOTIDINE 20 MG TAB PO SCH (08:07)
[2018-02-13] MEDS: LISINOPRIL 10 MG TAB PO SCH (08:07)
[2018-02-13] MEDS: ONDANSETRON 4 MG/2 ML VIAL IVP PRN (08:51)
[2018-02-13] MEDS ORDERED: ONDANSETRON DISINTEGRATING 4 MG TAB ONE (08:53)
--- NOTE | 2018-02-13 13:04 | NEUSURGPN ---
Date of Surgery: 02/10/18 Post Op Day: 3 Assessment/Plan: 87 yo female s/p bilateral cranitomy for subdural hematoma POD#4 CT head 4/5: pneumocephalus present, improved bilateral subdural hematoma CT head 4/7: increased pneumocephalus with new left sided acute blood -neuro stable - maintain SBP < 160 - Keppra while drains in place - continue bilateral subdural drains, changed to bulb/CONSUELO suction. Keep bulbs depressed to help facilitate evacuation of air - continuous high flow oxygen - tranexamic acid BID - PT/OT - advance diet as tolerated -Patient discussed with both Dr Haynes and Dr Monk -Please call neurosurgery with any questions/concerns Subjective: Patient sitting in chair, had some nausea and vomiting x1 earlier this am Objective: Awake. Alert. PERRL. EOMI Facial expression symmmetrical Muscle strength full at 5/5 Incision with dressing c/d/i Neuro Check Frequency: per routine Urinary Catheter in Place: No - Physician Discussed Patient with : [facility] Physical Exam - Vitals, I&O, Labs I and O 02/12/18 02/13/18 02/14/18 05:59 05:59 05:59 Intake Total 1323 1600 Output Total 821 1418 53 Balance 502 182 -53 Weight 55 kg Intake: Oral (ml) 750 1600 IV Intake (ml) 261 IV Infused (ml) 312 Ns 1,000 ml @ 75 mls/hr 192 IV CONT KILLIAN Rx#: [id number] niCARdipine/NACL 200 ml @ 120 Titrate IV CONT KILLIAN Rx#: [id number] Output: Urine (ml) 650 1325 Bedside Commode 650 825 Incontinence 500 CSF Drainage Amount 171 93 53 Left Ventriculostomy 63 47 0 Right Ventriculostomy 108 46 53 Other: Number of Voids Incontinence 1 1 Toilet 4 Number of Stools Bedside Commode 0 Toilet 1 Vital Signs Temp Pulse Resp BP Pulse Ox 36.6 C 82 19 114/67 100 02/13/18 12:00 02/13/18 12:00 02/13/18 12:00 02/13/18 12:00 02/13/18 12:00 Laboratory Results 02/13/18 04:30 02/13/18 04:30 ICD10 Worksheet Patient Problems: Problems Problem Status Onset Bilateral subdural hematomas Acute
--- NOTE | 2018-02-13 16:08 | ASMTCMCOM ---
CM Note CM Note Notes: Per ICU rounds, pt had a repeat CT scan this morning. Pt has new/acute bleeding on left and free air around the brain. Neurosurg to place CONSUELO bulbs to suction today. Inpatient rehab to evaluate pt on 02/15. CM will continue to follow. Current Discharge Plan: To be determined Date Signed: 02/13/2018 04:06 PM Electronically Signed By:Jes Mc RN
--- NOTE | 2018-02-13 17:19 | PDINTPN ---
Paper Cup Machine Operator Progress Note Assessment/Plan: Assessment: Subdural hematomas, status post bilateral craniotomy and drainage. Drains remain in place. On Keppra, transexamic acid. Neurologic status is improving. However, CT scan today shows more he pneumocephalus and some new bleeding. Neuro surgery aware. Drains to suction. Hypertension. On lisinopril. Blood pressure is fine. Not requiring additional blood pressure control. Nutrition: Eating. GI prophylaxis: Famotidine DVT prophylaxis: SCDs. Plan: Continue care in the intensive care unit. Continue neuro checks, subdural drainage per orders from neuro surgery. Continue present medications. Subjective: Denies headache. Conversant. Objective: Vital Signs Temp Pulse Resp BP Pulse Ox 36.9 C 91 19 116/45 L 100 02/13/18 16:00 02/13/18 16:00 02/13/18 16:00 02/13/18 16:00 02/13/18 16:00 Laboratory Results 02/13/18 04:30 02/13/18 04:30 02/12/18 02/13/18 02/14/18 05:59 05:59 05:59 Intake Total 1323 1600 Output Total 821 1418 83 Balance 502 182 -83 PT 13.7 SEC (12.0-15.0) 02/10/18 17:47 INR 1.03 (0.83-1.16) 02/10/18 17:[address] head: Increased pneumocephalus, rebleeding on the left. Physical Exam - Physical Exam General Appearance: alert, no apparent distress, thin, other (Up in chair) EENT: other (Drains in place, now to bulb suction) Neck: normal inspection Respiratory: lungs clear, decreased breath sounds Cardiac/Chest: regular rate, rhythm, systolic murmur Abdomen: normal bowel sounds, non-tender, soft Pelvic Exam: other (No Jacques) Skin: warm/dry, pallor Extremities: No pedal edema Neuro/Psych: cognition abnormalities (Improved compared to several days ago, but since yesterday.), No no motor/sensory deficits (Possibly has some mild right-sided weakness) ICD10 Worksheet Patient Problems: Problems Problem Status Onset Bilateral subdural hematomas Acute
[2018-02-13] MEDS: LATANOPROST 0.005% 2.5 ML OPHT DROPS EACHEYE SCH (20:09)
[2018-02-14] MEDS: levETIRAcetam 500 MG TAB PO SCH ×2 (08:51→20:18)
[2018-02-14] MEDS: LISINOPRIL 10 MG TAB PO SCH (08:55)
[2018-02-14] MEDS: FAMOTIDINE 20 MG TAB PO SCH (09:06)
[2018-02-14] MEDS: TRANEXAMIC ACID 650 MG TAB PO SCH ×2 (09:06→20:18)
[2018-02-14] MEDS: CHOLECALCIFEROL VIT D3 1,000 UNITS TAB PO SCH (09:06)
--- NOTE | 2018-02-14 09:25 | NEUSURGPN ---
Date of Surgery: 02/11/18 Post Op Day: 3 Assessment/Plan: 87 yo female s/p bilateral craniotomy for subdural hematoma POD#5 CT head 4/5: pneumocephalus present, improved bilateral subdural hematoma CT head 4/7: increased pneumocephalus with new left sided acute blood -neuro stable - maintain SBP < 160 - Keppra while drains in place - continue bilateral subdural drains, changed to bulb/CONSUELO suction yesterday. Continue to keep bulbs depressed to help facilitate evacuation of air - Place patient on NC oxygen - tranexamic acid BID - PT/OT - advance diet as tolerated -Will get repeat head CT in am -Case management to eval dispo options, patient lives home alone and will likely need rehab -Patient discussed with Dr Monk -Please call neurosurgery with any questions/concerns Subjective: Patient doing well, denies any issues Objective: Awake. Alert. PERRL. EOMI Facial expression symmmetrical Muscle strength full at 5/5 Incision with dressing c/d/i Neuro Check Frequency: per routine Urinary Catheter in Place: No - Physician Discussed Patient with Dr.: [facility] Physical Exam - Vitals, I&O, Labs I and O 02/13/18 02/14/18 02/15/18 05:59 05:59 05:59 Intake Total 1600 1250 Output Total 1418 383 Balance 182 867 Intake: Oral (ml) 1600 1250 Output: Urine (ml) 1325 200 Bedside Commode 825 200 Incontinence 500 CSF Drainage Amount 93 183 Left Ventriculostomy 47 5 Right Ventriculostomy 46 178 Other: Number of Voids Incontinence 1 Toilet 1 Vital Signs Temp Pulse Resp BP Pulse Ox 36.7 C 75 15 98/67 L 100 02/14/18 08:00 02/14/18 08:00 02/14/18 08:00 02/14/18 08:00 02/14/18 08:00 Laboratory Results 02/13/18 04:30 02/13/18 04:30 ICD10 Worksheet Patient Problems: Problems Problem Status Onset Bilateral subdural hematomas Acute
--- NOTE | 2018-02-14 13:11 | PDINTPN ---
Semiconductor Development Technician Progress Note Assessment/Plan: Assessment: Intact and well functionally 87-year-old admitted 02/10 with bilateral subacute subdural hematomas. Taking to the operating room for drainage on 02/11. Subdural hematomas, status post bilateral craniotomy and drainage. Drains in place. On Keppra, transexamic acid. Neurologic status is improving. CT scan shows sig pneumocephalus with some persist bleeding on L. Drains to suction. Hypertension. On lisinopril. Blood pressure is fine. Not requiring additional blood pressure control. Nutrition: Eating. GI prophylaxis: Famotidine DVT prophylaxis: SCDs. Plan: Continue care in the intensive care unit. Continue neuro checks, subdural drainage per orders from neuro surgery. Continue present medications. For repeat CT scan of the head tomorrow. Subjective: Doing well, up walking in the halls with a walker and physical therapy Objective: Vital Signs Temp Pulse Resp BP Pulse Ox 36.9 C 79 16 113/48 L 94 02/14/18 12:00 02/14/18 12:00 02/14/18 12:00 02/14/18 12:00 02/14/18 12:00 Laboratory Results 02/13/18 04:30 02/13/18 04:30 02/13/18 02/14/18 02/15/18 05:59 05:59 05:59 Intake Total 1600 1250 370 Output Total 1418 383 32 Balance 182 867 338 PT 13.7 SEC (12.0-15.0) 02/10/18 17:47 INR 1.03 (0.83-1.16) 02/10/18 17:47 Physical Exam - Physical Exam General Appearance: alert, no apparent distress, other (Bilateral dressings and CONSUELO drains in place with bulb suction) EENT: PERRL/EOMI Neck: normal inspection Respiratory: lungs clear Cardiac/Chest: regular rate, rhythm, systolic murmur, No gallop Abdomen: normal bowel sounds, non-tender, soft Skin: normal color, warm/dry Extremities: No pedal edema Neuro/Psych: cognition abnormalities (Improved - some word-finding problems persist.), No no motor/sensory deficits ( mild right-sided weakness) ICD10 Worksheet Patient Problems: Problems Problem Status Onset Bilateral subdural hematomas Acute
[2018-02-14] MEDS: LATANOPROST 0.005% 2.5 ML OPHT DROPS EACHEYE SCH (20:19)
[2018-02-15] MEDS: levETIRAcetam 500 MG TAB PO SCH ×2 (09:15→19:53)
[2018-02-15] MEDS: FAMOTIDINE 20 MG TAB PO SCH (09:15)
[2018-02-15] MEDS: TRANEXAMIC ACID 650 MG TAB PO SCH ×2 (09:15→19:53)
[2018-02-15] MEDS: CHOLECALCIFEROL VIT D3 1,000 UNITS TAB PO SCH (09:16)
[2018-02-15] MEDS: LISINOPRIL 10 MG TAB PO SCH (09:16)
--- NOTE | 2018-02-15 09:19 | NEUSURGPN ---
Date of Surgery: 02/11/18 Post Op Day: 4 Assessment/Plan: 87 yo female s/p bilateral craniotomy for subdural hematoma POD#6 CT head 4/5: pneumocephalus present, improved bilateral subdural hematoma CT head 47: increased pneumocephalus with new left sided acute blood CT head 4/9: mild improved pneumocephalus with increased left sided sd -neuro stable - maintain SBP < 160 - Keppra while drains in place, will plan to remove drains later today -Will keep SDU status for today, possible transfer to floor tomorrow if remains stable - tranexamic acid BID - PT/OT - advance diet as tolerated -Case management to eval dispo options, patient lives home alone and will likely need rehab -Patient discussed with Dr Malave -Please call neurosurgery with any questions/concerns Subjective: No new complaints Objective: Awake. Alert. PERRL. EOMI Facial expression symmetrical Muscle strength full at 5/5 Incision with dressing c/d/i Neuro Check Frequency: per routine Urinary Catheter in Place: No - Physician Discussed Patient with : [facility] Physical Exam - Vitals, I&O, Labs I and O 02/14/18 02/15/18 02/16/18 05:59 05:59 05:59 Intake Total 1250 870 Output Total 383 758 Balance 867 112 Intake: Oral (ml) 1250 870 Output: Urine (ml) 200 700 Bedside Commode 200 700 CSF Drainage Amount 183 58 Left Ventriculostomy 5 8 Right Ventriculostomy 178 50 Other: Number of Voids Incontinence 0 Toilet 1 1 Number of Stools Bedside Commode 0 Vital Signs Temp Pulse Resp BP Pulse Ox 37.1 C 77 14 104/67 94 02/15/18 08:44 02/15/18 08:44 02/15/18 08:44 02/15/18 08:44 02/15/18 08:44 Laboratory Results 02/13/18 04:30 02/13/18 04:30 ICD10 Worksheet Patient Problems: Problems Problem Status Onset Bilateral subdural hematomas Acute
--- NOTE | 2018-02-15 09:22 | PDINTPN ---
Hvac Residential Service Technician Progress Note Assessment/Plan: Assessment/Plan: * Subdural hematomas, status post bilateral craniotomy and drainage. Drains in place. On Keppra, transexamic acid. Neurologic status is improving. CT scan shows sig pneumocephalus with some persist bleeding on L. Drains to suction. -drains out today * Hypertension. On lisinopril. Blood pressure well controlled. Not requiring additional blood pressure control. * Nutrition: Eating. * Mental status-excellent * GI prophylaxis: Famotidine * DVT prophylaxis: SCDs. * PT/OT-continue ambulation Subjective: Sitting up in chair. Just finished short ambulation. Mental status is good. Spirits are up. Objective: Vital Signs Temp Pulse Resp BP Pulse Ox 37.1 C 77 14 104/67 94 02/15/18 08:44 02/15/18 08:44 02/15/18 08:44 02/15/18 08:44 02/15/18 08:44 Laboratory Results 02/13/18 04:30 02/13/18 04:30 02/14/18 02/15/18 02/16/18 05:59 05:59 05:59 Intake Total 1250 870 Output Total 383 758 Balance 867 112 PT 13.7 SEC (12.0-15.0) 02/10/18 17:47 INR 1.03 (0.83-1.16) 02/10/18 17:47 - Time Spent With Patient Time Spent With Patient: 25 min of time spent with patient, over 1/2 involved with coordination of care or counseling Physical Exam - Physical Exam General Appearance: alert, no apparent distress EENT: PERRL/EOMI Neck: non-tender Respiratory: chest non-tender, lungs clear, normal breath sounds Cardiac/Chest: normal peripheral pulses, regular rate, rhythm, systolic murmur Peripheral Pulses: 2+: carotid (R), carotid (L), femoral (R), femoral (L), dorsalis-pedis (R), dorsalis-pedis (L) Abdomen: normal bowel sounds, non-tender, soft Pelvic Exam: deferred Rectal: deferred Skin: normal color, warm/dry Extremities: non-tender Neuro/Psych: alert ICD10 Worksheet Patient Problems: Problems Problem Status Onset Bilateral subdural hematomas Acute
[2018-02-15] MEDS ORDERED: SENNOSIDES/DOCUSATE SODIUM TAB PO PRN (12:32)
[2018-02-15] MEDS: LATANOPROST 0.005% 2.5 ML OPHT DROPS EACHEYE SCH (20:09)
--- NOTE | 2018-02-16 08:48 | SOAPPROG ---
SOAP Progress Note Assessment/Plan: Assessment: 87 yo female s/p bilateral craniotomy for SDH on 02/11/18 doing well. ambulating, fully oriented Plan: transfer to floor Q4 neuro checks PT/OT/ST discussed with Dr. Haynes 02/16/18 08:45 Subjective: out of bed in bedside chair. Doing well. Ambulated hallways yesterday denies numbness, tingling or weakness Denies [place]. feeling good Objective: Vital Signs Temp Pulse Resp BP Pulse Ox 37.1 C 78 18 144/70 H 100 02/16/18 03:39 02/16/18 03:39 02/16/18 03:39 02/16/18 03:39 02/16/18 03:39 Laboratory Results 02/13/18 04:30 02/13/18 04:30 02/15/18 02/16/18 02/17/18 05:59 05:59 05:59 Intake Total 870 750 Output Total 758 Balance 112 750 PT 13.7 SEC (12.0-15.0) 02/10/18 17:47 INR 1.03 (0.83-1.16) 02/10/18 17:47 Neuro: SANDERS to command, sens +LT follows commands oriented x 4. incision x [address], no JPs ICD10 Worksheet Patient Problems: Problems Problem Status Onset Bilateral subdural hematomas Acute
[2018-02-16] MEDS: TRANEXAMIC ACID 650 MG TAB PO SCH ×2 (08:57→21:04)
[2018-02-16] MEDS: levETIRAcetam 500 MG TAB PO SCH ×2 (08:58→21:04)
[2018-02-16] MEDS: LISINOPRIL 10 MG TAB PO SCH (09:01)
[2018-02-16] MEDS: FAMOTIDINE 20 MG TAB PO SCH (09:01)
[2018-02-16] MEDS: CHOLECALCIFEROL VIT D3 1,000 UNITS TAB PO SCH (09:02)
--- NOTE | 2018-02-16 09:06 | PDINTPN ---
Leasing Agent Progress Note Assessment/Plan: Assessment/Plan: * Subdural hematomas, status post bilateral craniotomy and drainage. Drains in place. On Keppra, transexamic acid. Neurologic status is improving. CT scan shows sig pneumocephalus with some persist bleeding on L. Drains to suction. -drains out * Hypertension. On lisinopril. Blood pressure well controlled. Not requiring additional blood pressure control. * Nutrition: Eating. * Mental status-excellent. Conversant with good recall * GI prophylaxis: Famotidine * DVT prophylaxis: SCDs. * PT/OT-continue ambulation * Disposition-rehab soon Subjective: Sitting up in chair. Resting comfortably. Denies any pain currently. Objective: Vital Signs Temp Pulse Resp BP Pulse Ox 37.1 C 78 18 144/70 H 100 02/16/18 03:39 02/16/18 03:39 02/16/18 03:39 02/16/18 03:39 02/16/18 03:39 Laboratory Results 02/13/18 04:30 02/13/18 04:30 02/15/18 02/16/18 02/17/18 05:59 05:59 05:59 Intake Total 870 750 Output Total 758 Balance 112 750 PT 13.7 SEC (12.0-15.0) 02/10/18 17:47 INR 1.03 (0.83-1.16) 02/10/18 17:47 - Time Spent With Patient Time Spent With Patient: 25 min of time spent with patient, over 1/2 involved with coordination of care or counseling. Case discussed with nursing. Physical Exam - Physical Exam General Appearance: alert, no apparent distress EENT: PERRL/EOMI Neck: non-tender, full range of motion, supple, normal inspection Respiratory: chest non-tender, lungs clear, normal breath sounds Cardiac/Chest: normal peripheral pulses, regular rate, rhythm, systolic murmur Peripheral Pulses: 2+: carotid (R), carotid (L), femoral (R), femoral (L), dorsalis-pedis (R), dorsalis-pedis (L) Abdomen: normal bowel sounds, non-tender, soft Pelvic Exam: deferred Rectal: deferred Skin: normal color, warm/dry Extremities: normal range of motion, non-tender, normal inspection, normal capillary refill Neuro/Psych: no motor/sensory deficits, alert, normal mood/affect, oriented x 3 ICD10 Worksheet Patient Problems: Problems Problem Status Onset Bilateral subdural hematomas Acute
[2018-02-16] MEDS: LATANOPROST 0.005% 2.5 ML OPHT DROPS EACHEYE SCH (21:03)
--- NOTE | 2018-02-17 08:28 | NEUSURGPN ---
Date of Surgery: 02/11/18 Post Op Day: 6 Assessment/Plan: 87 yo female s/p bilateral craniotomy for SDH on 02/11/18 Plan: - neuro stable - pain controlled - continue Tranexamic acid BID - PT/OT - shower today - to rehab once bed available Subjective: Sitting in bedside chair. No headache, nausea, vomiting. Objective: Awake. Alert. PERRL. EOMI Facial expression symmetrical Incisions c/d/i Following commands, TOMMY - Physician Discussed Patient with : [facility] Physical Exam - Vitals, I&O, Labs I and O 02/16/18 02/17/18 02/18/18 05:59 05:59 05:59 Intake Total 750 1100 Output Total 1600 Balance 750 -500 Intake: Oral (ml) 750 1100 Output: Urine (ml) 1600 Bedside Commode 900 Toilet 700 Other: Number of Voids Bedside Commode 1 Toilet 2 3 Number of Stools Toilet 1 Vital Signs Temp Pulse Resp BP Pulse Ox 36.9 C 75 16 129/58 H 100 02/17/18 04:00 02/17/18 04:00 02/17/18 04:00 02/17/18 04:00 02/17/18 04:00 Laboratory Results 02/13/18 04:30 02/13/18 04:30 ICD10 Worksheet Patient Problems: Problems Problem Status Onset Bilateral subdural hematomas Acute
[2018-02-17 08:33] VITALS: BP 131/69
[2018-02-17] MEDS: CHOLECALCIFEROL VIT D3 1,000 UNITS TAB PO SCH (09:38)
[2018-02-17] MEDS: LISINOPRIL 10 MG TAB PO SCH (09:38)
[2018-02-17] MEDS: TRANEXAMIC ACID 650 MG TAB PO SCH (09:38)
[2018-02-17] MEDS: FAMOTIDINE 20 MG TAB PO SCH (09:38)
[2018-02-17] MEDS: levETIRAcetam 500 MG TAB PO SCH (09:38)
--- NOTE | 2018-02-17 12:38 | PDIAF ---
- Diagnosis Diagnosis: subdural hematoma s/p craniotomy for evacuation Code Status: Full Code - Medication Management Discharge Medications: Medications to Continue on Transfer Cholecalciferol Vit D3 [Vitamin D3 (*)] 1,000 units PO DAILY 12/18/17 [Last Taken 02/10/18] Latanoprost 0.005% [Xalatan 0.005% (*)] 1 drop EACHEYE HS 12/18/17 [Last Taken 02/09/18] Lisinopril [Zestril 10 mg (*)] 10 mg PO DAILY 12/18/17 [Last Taken 02/10/18] Multivitamins [Multivitamin (*)] 1 each PO DAILY 12/18/17 [Last Taken Unknown] Acetaminophen [Tylenol 325mg (*)] 650 mg PO Q4HRS PRN tab 02/17/18 [Last Taken Unknown] Sennosides/Docusate Sodium [Senokot-S] 1 tab PO BID PRN tab 02/17/18 [Last Taken Unknown] Tranexamic Acid 650 mg PO BID tab 02/17/18 [Last Taken Unknown] Discharge Medications: Refer to the Discharge Home Medication list for PRN reason. - Orders Services needed: Registered Nurse, Certified Equalizer Operator, Physical Therapy, Occupational Therapy Diet Recommendation: no restrictions on diet Diet Texture: Regular Texture Diet, Thin Liquids, Meds Whole w/Liquids Wound Care Instructions: Follow up with Dr. Haynes in 2 weeks for staple removal. Additional Instructions: 1. Ok to shower and get incision wet. Be gentle. No scrubbing. 2. Refrain from lifting more than 10 pounds and bending. 3. No Aspirin or NSAIDs. 4. Follow up with Dr. Haynes in 2 weeks with a new head CT - Follow Up Care Current Providers and Referrals: Claudio Kaba MD [Primary Care Provider] - Brittaney Haynes DO [Doctor of Osteopathy] - follow up in 2 weeks
--- NOTE | 2018-02-17 14:57 | ASDISCHSUM ---
Discharge Information Plan Status:Inpatient Rehab Medically Cleared to Leave:02/17/2018 Discharge Date:02/17/2018 CM D/C Disposition:[facility] In[facility] Acute ADT D/C Disposition:[facility] Re[facility] IP Projected Discharge Date:02/17/2018 Transportation at D/C:Family Discharge Delay Reason: Follow-Up Date:02/17/2018 Discharge Slot:2 - 12:01 pm - 18:00 pm Final Diagnosis:Bilateral subdural hematomas s/p craniotomy for evacuation Placement Information Patient Contact Information Contact Name:MAURISIOCOMFORTVALERIY Relationship:Sister Address:[address] City:[place] Alternate Phone: State/Zip Code:[place] [address] Email: Financial Information Financial Class:Medicare Primary Plan Desc:MEDICARE INPATIENT Primary Plan Number:[id number] Secondary Plan Desc:[facility] Secondary Plan Number:[id number] Assessment Information [facility] Initial CM Assessment Living Arrangements What is your living Answers: Alone arrangement? Who do you live with? Type Of Residence What kind of residence do Answers: House you live in? Discharge Plan Comments Coordination Status Comments Notes: Patient is an 87yo female who lives independently in [place]. Patient's family noticed she was having word finding difficulties, dropping some objects, and had run her car into the garage so they brought her to the ER for evaluation. Patient had a fall 2 weeks ago and was seen but her CT scan had been negative. 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 PT/ORNAMENTAL METAL ERECTOR APPRENTICE have been ordered. D/C plan TBD. CM will follow. Date Signed: 02/11/2018 12:02 PM Electronically Signed By:Kristyn Galo LCSW LACE LACE Acuity / Level of Answers: Yes Care: Did the patient have an inpatient admission? Comorbidities - select Answers: Other Notes: subdural hematomas (2) all that apply # of Emergency department Answers: 1-2 visits in the last 6 months Score: 5 Date Signed: 02/11/2018 12:13 PM Electronically Signed By:Kristyn Galo LCSW JORJE EULALIO Progress Note CM Note CM Note Notes: PT has requested an inpatient rehab eval for patient. Patient is recovering from the crani yesterday and her neurologic status is improving. Drains remain in place. Patient has been up in her chair. Notified [facility] about the request for inpatient rehab eval. CM will follow. Date Signed: 02/12/2018 02:46 PM Electronically Signed By:Kristyn Galo LCSW FAVIAN TSAI Progress Note CM Note CM Note Notes: Per ICU rounds, pt had a repeat CT scan this morning. Pt has new/acute bleeding on left and free air around the brain. Neurosurg to place CONSUELO bulbs to suction today. Inpatient rehab to evaluate pt on 02/15. CM will continue to follow. Current Discharge Plan: To be determined Date Signed: 02/13/2018 04:06 PM Electronically Signed By:Jes Mc RN Case Management Discharge Plan Note Case Management Discharge Discharge Order Complete? Answers: Yes Patient to Obtain Answers: Other Notes: via Acute Inpt Rehab Medications ([facility]) Transportation Arranged Answers: Family/Friends Transport will Pick (Date 02/17/2018 02:00 PM & Time) EMTALA Complete Answers: No Notes: N/A Case Management Transport Answers: No Notes: N/A Form Complete Faxed Final Orders Answers: No Notes: Orders received via bettermarks, internal acce ss Agency/Facility Transfer Answers: No Notes: Internal transfer Report Printed & Faxed to Receiving Agency Family Notified Answers: Yes Notes: [facility] notified Discharge Comments Notes: Reviewed chart regarding discharge plan of care, pt's progress. Pt to discharge to Acute Inpt Rehab with [facility] today. Call received from [facility] Scales with Inpt Rehab - per [facility], pt has been accepted and they are ready for her this morning. Spoke with KARO Salter. Met with pt to discuss discharge. Pt unaware of pending transfer to Inpt Rehab. Spent considerable amount of time with pt discussing Inpt Rehab (3 hrs of therapy Mon-Fri; intensive program; benefits, etc). Pt open to rehab, but concerned about potential costs. Pt requested CM discuss further with pt's Phuong soriano . Call placed to [facility] Scales regarding pt's financial questions. Per Vida, "the pt has straight Medicare with an [place] supplement." According to pt's bo, the pt also has [facility] care health insurance. [facility] reports "the pt has a one time fee of $1340.00 for acute hospitalization; the fee was met with the pt's current hospitalization." "All doctor fees are rolled into the acute care fees, so the pt should not have any other [id number] expenses at inpt rehab." Information relayed to pt. Call placed to Phuong. Update provided. Phuong informed of pt's concerns, financial questions. Per Phuong, all details were worked out with [facility] yesterday (02/16/18); [facility] aware of pending transfer for today. Transportation options discussed; Ph[facility]ong to provide transport to Inpt Rehab. CM explained no stops are allowed between facilities; Phuong verbalized understanding. Address and nurse station phone number for Inpt Rehab provided to Phuong. Pt to transfer at 14:00. Updates provided to Joie Mcpherson RN and pt. IM signed and placed in chart. Orders requested and obtained. Pt to follow up as directed. CM available for any further issues or concerns. Date Signed: 02/17/2018 02:54 PM Electronically Signed By:Jes Mc RN Intervention Information Intervention Type:*IM-Signed Date of Service:02/17/2018 02:21 PM Patient Type:Inpatient Staff Member:KARO Mc, Jes Hours: Discipline: Severity: Comment:
== END 2018-02-17 14:57 | DRG 26 ==
LOC: F2N 20:12 → F3N 02-16 22:07
PROVIDERS: ADMIT Neurological Surgery; ATTEND Neurological Surgery
PROC: 30233R1 Transfusion of Nonautologous Platelets into Peripheral Vein, Percutaneous Approach (ICD-10-PCS; 2018-02-10)
PROC: 009400Z Drainage of Intracranial Subdural Space with Drainage Device, Open Approach (ICD-10-PCS; principal; 2018-02-11 14:00)
DX: S06.5X0A Traumatic subdural hemorrhage without loss of consciousness, initial encounter (principal); R47.01 Aphasia; W00.0XXA Fall on same level due to ice and snow, initial encounter; R32 Unspecified urinary incontinence; K59.00 Constipation, unspecified; I10 Essential (primary) hypertension; H40.9 Unspecified glaucoma; Z85.038 Personal history of other malignant neoplasm of large intestine; Z79.82 Long term (current) use of aspirin
CPT/HCPCS: 92507-GN; 92523-GN; 92610-GN; 97112-GP; 97116-GP; 97161-GP; 97166-GO; 97530-GO; 97530-GP; 97535-GO; C1713; C1729; G0515-GO; G8978-GP-CK; G8979-GP-CI; G8987-GO-CK; G8988-GO-CI; G8996-GN-CH; G8997-GN-CH; G8998-GN-CH; G9162-GN-CL; G9163-GN-CJ; J0171; J0690; J1100; J1580; J2001; J2405; J2704; J3010; P9035

== ENCOUNTER 2018-02-17 15:22 | Inpatient (IN) | payer OTHER ==
[2018-02-17] MEDS ORDERED: ACETAMINOPHEN 325 MG TAB PO PRN (15:38)
[2018-02-17] MEDS ORDERED: BISACODYL 10 MG SUPP PR PRN (16:29)
--- NOTE | 2018-02-17 21:01 | GHP ---
[f rep st] HISTORY AND PHYSICAL POST ADMISSION PHYSICIAN EVALUATION AND REHABILITATION TREATMENT PLAN. DATE OF ADMISSION: 02/17/2018 DATE OF EVALUATION: 02/17/2018. TIME OF EVALUATION: 1555. REFERRING FACILITY: [facility]. REFERRING PHYSICIAN: Dr. Castaneda IMPAIRMENT GROUP: [id number]. DATE OF ONSET: 02/10/2018. REHABILITATION DIAGNOSIS: Debility and expressive aphasia due to bilateral subdural hematomas, status post bilateral craniotomies and evacuations. ETIOLOGIC DIAGNOSIS: Traumatic, closed injury. DATE OF SURGERY: 02/12/2018. HISTORY OF PRESENT ILLNESS: This patient had a fall approximately 2 weeks prior to admission when she slipped on ice. She had gradual development of difficulty speaking and confusion. After her fall, she was seen at [facility] and had a negative CT scan of the brain. She was brought to the [facility] Emergency Department where a head CT showed large bilateral subdural hematomas, mostly subacute, but also acute foci of hemorrhage and mass effect on the ventricular system with mild [id number] shift. She underwent bilateral craniotomies and evacuation on 02/12/2018. She had some subsequent bleeding as well as pneumocephalus. She was seen by therapies and noted to require assistance with ADLs and mobility. She also had gdymnuoc-ca-[id number] expressive aphasia and moderate receptive aphasia. She was otherwise medically stabilized and appropriate for inpatient rehabilitation. STUDIES AND LABS: There was a head CT on 02/15/2018, following up on several previous ones which showed increased extent of hemorrhage and decreased pneumocephalus in the left subdural hematoma which was equivocally increased in size over the left parietal region, and stable 5 mm [id number] midline shift. There was no change in the right frontoparietal subdural hematoma. CBC on admission was overall normal, and on 02/13/2018, showed anemia with hemoglobin of 10.5 and hematocrit of 32.1. Coagulation studies revealed normal PT and PTT. Serum chemistries on the day of admission and on 02/13/2018, were overall within normal limits. She had a slightly low calcium on 02/13 of 8.3. Urinalysis on 02/10/2018, was positive for 1+ blood, but was otherwise negative. Chest x-ray on the day of admission showed peribronchial thickening and hyperexpansion, but otherwise there were no thoracic abnormalities seen. EKG showed normal sinus rhythm. PRECAUTIONS: Precautions she is a fall risk. ACTIVE COMORBIDITIES: She has no active tier 1, tier 2, or tier 3 comorbidities. PAST MEDICAL HISTORY: 1. Hypertension. 2. Colon cancer. PAST SURGICAL HISTORY: She has had a partial colectomy for colon cancer. PRE-HOSPITAL MEDICATIONS: 1. Aspirin 81 mg p.o. q. day. 2. Cholecalciferol 1000 units p.o. q. day. 3. Latanoprost 0.005% 1 drop each eye q.h.s. 4. Lisinopril 10 mg p.o. q. day. 5. Multivitamin 1 p.o. q. day. ADMISSION MEDICATIONS: 1. Acetaminophen 650 mg p.o. q.4 hours p.r.n. 2. Cholecalciferol 1000 units p.o. q. day. 3. Latanoprost 1 drop each eye q.h.s. 4. Lisinopril 10 mg p.o. q. day. 5. Multivitamin 1 p.o. q. day. 6. Senna/docusate 1 tab p.o. b.i.d. p.r.n. 7. Tranexamic acid 650 mg p.o. b.i.d. ALLERGIES: There is an allergy listed to sulfonamide antibiotics. PSYCHOSOCIAL HISTORY: She lives alone. She is quite active, with a large social network. She was driving. She is a and has no children. She has a local niece and a local sister who are involved in her care. The sister has recently had an injury and is hospitalized at present. FAMILY HISTORY: Noncontributory. REVIEW OF SYSTEMS: Somewhat limited due to expressive aphasia. She denies pain. She is equivocal about a cough. She denies dyspnea. She has constipation. Niece she reports that she has urinary incontinence. She has a good appetite and no nausea or vomiting. Otherwise, a 10-point review of systems is negative. PHYSICAL EXAM: VITALS: This morning in the hospital, blood pressure was 131/69 , heart rate was 79, respiratory rate was 17, oxygen saturation was 95% on room air. Temperature was 36.9 degrees centigrade. Her weight is 55 kg for a body mass index of 23.7. GENERAL: This is a well-nourished, well-developed, elderly woman, dressed in street clothes, sitting up on the edge of the bed, cooperative, and in no acute distress HEENT: Extraocular movements are intact. Pupils are equal, round, reactive to light. Mucous membranes are moist. Dentition is in good condition. She has a mildly crowded airway, Mallampati class II. NECK: Supple. HEART: There is a regular rate and rhythm with no murmurs, rubs, or gallops. LUNGS: She has occasional expiratory rhonchi. There are no wheezes or crackles, and lungs are otherwise clear to auscultation bilaterally. ABDOMEN: Soft, nontender, nondistended with normoactive bowel sounds and no hepatosplenomegaly. There is an old healed scar to the left of midline. EXTREMITIES: There is no cyanosis, clubbing, or edema. Radial and dorsalis pedis pulses are 2+ bilaterally. NEUROLOGIC: She is alert. Orientation was not checked. She has marked expressive aphasia, but she seems to respond appropriately to commands and understands spoken conversation. Cranial nerves 2-12 are grossly intact. She has weakness bilaterally in the triceps, and otherwise there is no focal weakness. Sensation is intact to light touch. Deep tendon reflexes are 2+ bilaterally at the biceps tendons and hypoactive bilaterally at the Achilles and patellar tendons. She has very slight pronator drift on the left upper extremity. Rapid alternating movements are intact. Plantar reflex is indeterminate bilaterally. CURRENT LEVEL OF FUNCTION: Per the pre-admission screen. DIET, FEEDING, AND SWALLOWING: She was on a regular diet and needed setup. GROOMING: Done standing at the sink with standby assist. TOILETING: She required minimal assist for hygiene. She was able to transfer to the toilet with contact guard assist. BLADDER: She was noted to be occasionally incontinent. She was continent of bowel. BED MOBILITY: Required assistance. Transfers were done with minimal assistance. She used a 4-wheeled walker. For seated balance she needed contact guard assist. ENDURANCE: Fair. She ambulated 75 feet with minimal assist using a 4-wheeled walker with voice cues to negotiate the environment and avoid objects on the right. COMMUNICATION: She was noted to have kfhlzkck-gk-[id number] expressive aphasia and moderate receptive aphasia. COGNITION: She was noted to have impaired memory. On today's exam, she appears to be independent with bed mobility. Otherwise, there are no significant differences from the preadmission screen. IMPRESSION: This is an 87-year-old woman who suffered a fall on ice several weeks ago and had gradual onset of confusion and impaired communication. She eventually came to the hospital where she was found to have bilateral subdural hematomas. She underwent bilateral craniotomy and evacuation on 02/10/2018. There was pneumocephalus and there was some continued bleeding which eventually resolved. There were drains that were removed. She presents with significant expressive aphasia and deficits to mobility and activities of daily living. Her goal is to go home with supportive services and possibly hire assistance at home. For a safe discharge, it is anticipated that she will achieve independence with eating, grooming, and bed mobility, and modified assistance for transfers and ambulation with the least restrictive device on level and unlevel surfaces. She will need to use compensatory strategies to be able to be left alone at home for periods of time without supervision. She will have therapy with Physical Therapy, Occupational Therapy, and Speech and Language Pathology for 60 minutes per day for each discipline on 5-7 days of the week. Her expected duration of stay is 7-10 days. It is anticipated that upon discharge she will continue to benefit from home health services including nursing, speech language pathology, a nurse's aide, occupational therapy, and physical therapy. She will also benefit from a brain injury support group. PLAN: 1. Expressive aphasia, status post bilateral subdural hematomas and craniotomies for evacuation. The etiology is somewhat obscure. There does not appear to be any particular injury to the temporal lobe, but with a benign midline shift, it could be that the temporal lobe has experienced some compromise. She will be assessed and treated by Speech and Language Pathology to optimize her ability to communicate. 2. Debility with impaired mobility and activities of daily living. PT and OT to optimize mobility toward the independent level to modified independent level. 3. Subdural hematomas, status post bilateral craniotomies. Continue tranexamic acid until followup with Neurosurgery. 4. Hypertension. Continue lisinopril. 5. Urinary incontinence, unclear etiology. She will have regular toileting per Nursing and it is hoped that she can recover continence. 6. Constipation. Continue senna/docusate as ordered out of hospital, and the laxatives can be titrated or augmented as needed. Will also order bisacodyl suppository. 7. Glaucoma. Continue latanoprost. 8. Prophylaxis. Her mobility appears to be fairly good. There is a relative contraindication to anticoagulation due to recent bleed. She will have SCDs at night and will be mobilized as much as possible to reduce her risk for DVT. FOLLOWUP: She is to have followup in approximately [address] Haynes of Neurosurgery with a new head CT. Additionally, staple removal will be done per Dr. Haynes in 2 weeks. Her primary care provider is Dr. Kaba. /[id number]/MODL MTDD
[2018-02-17] MEDS: LATANOPROST 0.005% 2.5 ML OPHT DROPS EACHEYE SCH (21:34)
[2018-02-17] MEDS: TRANEXAMIC ACID 650 MG TAB PO SCH (21:34)
[2018-02-18 08:03] LABS: PLATELET COUNT 216 10^3/uL (150-400)
[2018-02-18] MEDS: TRANEXAMIC ACID 650 MG TAB PO SCH ×2 (09:11→21:05)
[2018-02-18] MEDS: LISINOPRIL 10 MG TAB PO SCH (09:11)
[2018-02-18] MEDS: MULTIVITAMINS 1 EACH TAB PO SCH (09:11)
[2018-02-18] MEDS: CHOLECALCIFEROL VIT D3 1,000 UNITS TAB PO SCH (09:11)
--- NOTE | 2018-02-18 11:25 | SOAPPROG ---
[facility] Progress Note Assessment/Plan: Assessment: 1. Expressive aphasia, status post bilateral subdural hematomas and craniotomies for evacuation. The etiology is somewhat obscure. There does not appear to be any particular injury to the temporal lobe, but with a benign midline shift, it could be that the temporal lobe has experienced some compromise. She will be assessed and treated by Speech and Language Pathology to optimize her ability to communicate. 2. Debility with impaired mobility and activities of daily living. PT and OT to optimize mobility toward the independent level to modified independent level. 3. Subdural hematomas, status post bilateral craniotomies. Continue tranexamic acid until followup with Neurosurgery. 4. Hypertension. Continue lisinopril. 5. Urinary incontinence, unclear etiology. She will have regular toileting per Nursing and it is hoped that she can recover continence. 6. Constipation. Continue senna/docusate as ordered out of hospital, and the laxatives can be titrated or augmented as needed. Will also order bisacodyl suppository. 7. Glaucoma. Continue latanoprost. 8. Prophylaxis. Her mobility appears to be fairly good. There is a relative contraindication to anticoagulation due to recent bleed. She will have SCDs at night and will be mobilized as much as possible to reduce her risk for DVT. FOLLOWUP: She is to have followup in approximately [address] Haynes of Neurosurgery with a new head CT. Additionally, staple removal will be done per Dr. Haynes in 2 weeks. Her primary care provider is Dr. Kaba. Plan: 02/18/18 11:25 Objective: Vital Signs Temp Pulse Resp BP Pulse Ox 36.4 C 93 16 113/57 L 97 02/18/18 08:00 02/18/18 08:00 02/18/18 08:00 02/18/18 08:00 02/18/18 08:00 Laboratory Results 02/18/18 06:00 02/18/18 06:00 02/17/18 02/18/18 02/19/18 05:59 05:59 05:59 Intake Total 370 236 Balance 370 236 ICD10 Worksheet Patient Problems: Problems Problem Status Onset Bilateral subdural hematomas Acute
--- NOTE | 2018-02-18 12:45 | PDOREHIP ---
Admission [facility] - Admission - 3 Day Assessment Period Admission Date/Day 1: 02/17/18 Day 2: 02/18/18 Day 3: 02/19/18 - Active Diagnoses Comorbidities and Co-existing Conditions at Admission: 29990. None of the Above - Skin Conditions Unhealed Pressure Ulcer (1 or more/Stage 1 or >)-Admission: 0. No
--- NOTE | 2018-02-18 14:12 | SOAPPROG ---
SOAP Progress Note Assessment/Plan: Assessment: * Expressive aphasia, status post bilateral subdural hematomas and craniotomies for evacuation. The etiology is somewhat obscure. There does not appear to be any particular injury to the temporal lobe, but with a midline shift, it could be that the temporal lobe has experienced some compromise. She will be assessed and treated by Speech and Language Pathology to optimize her ability to communicate. * Debility with impaired mobility and activities of daily living. PT and OT to optimize mobility toward the independent level to modified independent level. * Subdural hematomas, status post bilateral craniotomies. Continue tranexamic acid until followup with Neurosurgery. * Hypertension. Continue lisinopril. Adequate control. * Anemia. Slightly worse than when last checked in the hospital; hemoglobin 10.0 on CBC 02/18/2017; was 10.5 on 02/13/2018. Recheck p.r.n. * Urinary incontinence, unclear etiology. She will have regular toileting per Nursing and it is hoped that she can recover continence. * Constipation. Continue senna/docusate as ordered out of hospital, and the laxatives can be titrated or augmented as needed. Will also order bisacodyl suppository. * Glaucoma. Continue latanoprost. * Prophylaxis. Her mobility appears to be fairly good. There is a relative contraindication to anticoagulation due to recent bleed. She will have SCDs at night and will be mobilized as much as possible to reduce her risk for DVT. Discussed her concerns re nursing care with charge nurse, who will follow-up to better understand what happened. Patient will get extra monitoring by staff tonight. FOLLOWUP: She is to have followup in approximately [address] Haynes of Neurosurgery with a new head CT. Additionally, staple removal will be done per Dr. Haynes in 2 weeks. Her primary care provider is Dr. Kaba. 02/18/18 14:06 02/18/18 14:12 Subjective: Thinks she was mistreated overnight. She says that was a long time before staff came to check on her during appeared of I am when she could not find her call light. She had a blood draw in the basket grader and thinks that the nurse was practicing on her and did not do a good job. She reports reduced conference in care. Otherwise without complaints. No cough or dyspnea, no fevers or chills. Objective: Vital Signs Temp Pulse Resp BP Pulse Ox 36.4 C 93 16 113/57 L 97 02/18/18 08:00 02/18/18 08:00 02/18/18 08:00 02/18/18 08:00 02/18/18 08:00 Laboratory Results 02/18/18 06:00 02/18/18 06:00 02/17/18 02/18/18 02/19/18 05:59 05:59 05:59 Intake Total 370 286 Balance 370 286 Physical Exam - Physical Exam General Appearance: WD/WN, alert, no apparent distress Respiratory: normal breath sounds, No crackles, No rhonchi, No wheezing Cardiac/Chest: regular rate, rhythm, No edema, No diastolic murmur, No systolic murmur Skin: normal color, warm/dry, other (Ecchymosis approximately 2 x 4 cm over right volar wrist. By lateral scalp incisions with randy, clean dry and intact.) Neuro/Psych: alert, normal mood/affect, speech abnormalities (Expressive aphasia ), other (Ambulates with front wheeled walker, slightly wide-based gait, step through pattern, slowly.) ICD10 Worksheet Patient Problems: Problems Problem Status Onset Bilateral subdural hematomas Acute
[2018-02-18] MEDS: LATANOPROST 0.005% 2.5 ML OPHT DROPS EACHEYE SCH (21:05)
[2018-02-19] MEDS: MULTIVITAMINS 1 EACH TAB PO SCH (09:16)
[2018-02-19] MEDS: CHOLECALCIFEROL VIT D3 1,000 UNITS TAB PO SCH (09:16)
[2018-02-19] MEDS: TRANEXAMIC ACID 650 MG TAB PO SCH ×2 (09:17→20:49)
[2018-02-19] MEDS: LISINOPRIL 10 MG TAB PO SCH (09:17)
--- NOTE | 2018-02-19 12:20 | SOAPPROG ---
SOAP Progress Note Assessment/Plan: Assessment: * Expressive aphasia, status post bilateral subdural hematomas and craniotomies for evacuation. The etiology is somewhat obscure. There does not appear to be any particular injury to the temporal lobe, but with a midline shift, it could be that the temporal lobe has experienced some compromise. She will be assessed and treated by Speech and Language Pathology to optimize her ability to communicate. * Debility with impaired mobility and activities of daily living. * Contact guard assist for transfers and ambulation with front wheeled walker. Deviates to the right and requires cues to correct. * Continue PT and OT to optimize mobility toward the independent level to modified independent level. * Subdural hematomas, status post bilateral craniotomies. Continue tranexamic acid until followup with Neurosurgery. * Hypertension. Continue lisinopril. Adequate control. * Anemia. Slightly worse than when last checked in the hospital; hemoglobin 10.0 on CBC 02/18/2017; was 10.5 on 02/13/2018. Recheck p.r.n. * Urinary incontinence, unclear etiology. She will have regular toileting per Nursing and it is hoped that she can recover continence. * Constipation. Continue senna/docusate as ordered out of hospital, and the laxatives can be titrated or augmented as needed. Will also order bisacodyl suppository. * Glaucoma. Continue latanoprost. * Prophylaxis. Her mobility appears to be fairly good. There is a relative contraindication to anticoagulation due to recent bleed. She will have SCDs at night and will be mobilized as much as possible to reduce her risk for DVT. FOLLOWUP: She is to have followup in approximately [address] Haynes of Neurosurgery with a new head CT. Additionally, staple removal will be done per Dr. Haynes in 2 weeks. Her primary care provider is Dr. Kaba. 02/19/18 12:15 Subjective: Had a much better night. Slept well. Feels better about being here. Denies pain, cough, dyspnea, fevers, chills. Objective: Vital Signs Temp Pulse Resp BP Pulse Ox 37.1 C 130 H 14 110/60 96 02/19/18 08:00 02/19/18 08:00 02/19/18 08:00 02/19/18 08:00 02/19/18 08:00 Laboratory Results 02/18/18 06:00 02/18/18 06:00 02/18/18 02/19/18 02/20/18 05:59 05:59 05:59 Intake Total 370 1436 120 Output Total 700 250 Balance 370 736 -130 Physical Exam - Physical Exam General Appearance: WD/WN, alert, no apparent distress Respiratory: normal breath sounds, No crackles, No rhonchi, No wheezing Cardiac/Chest: regular rate, rhythm, No edema Skin: normal color, warm/dry Neuro/Psych: alert, normal mood/affect, speech abnormalities (Expressive aphasia ) ICD10 Worksheet Patient Problems: Problems Problem Status Onset Bilateral subdural hematomas Acute
[2018-02-19] MEDS: LATANOPROST 0.005% 2.5 ML OPHT DROPS EACHEYE SCH (20:49)
[2018-02-20] MEDS: TRANEXAMIC ACID 650 MG TAB PO SCH ×2 (08:47→20:11)
[2018-02-20] MEDS: LISINOPRIL 10 MG TAB PO SCH (08:47)
[2018-02-20] MEDS: MULTIVITAMINS 1 EACH TAB PO SCH (08:47)
[2018-02-20] MEDS: CHOLECALCIFEROL VIT D3 1,000 UNITS TAB PO SCH (08:47)
--- NOTE | 2018-02-20 10:09 | SOAPPROG ---
SOAP Progress Note Assessment/Plan: Assessment/Plan: * Expressive aphasia, status post bilateral subdural hematomas and craniotomies for evacuation. The etiology is somewhat obscure. There does not appear to be any particular injury to the temporal lobe, but with a midline shift, it could be that the temporal lobe has experienced some compromise. She will be assessed and treated by Speech and Language Pathology to optimize her ability to communicate. * Debility with impaired mobility and activities of daily living. * Contact guard assist for transfers and ambulation with front wheeled walker. Deviates to the right and requires cues to correct. * Continue PT and OT to optimize mobility toward the independent level to modified independent level. * Subdural hematomas, status post bilateral craniotomies. Continue tranexamic acid until followup with Neurosurgery. * Hypertension. Continue lisinopril. Adequate control. * Anemia. Slightly worse than when last checked in the hospital; hemoglobin 10.0 on CBC 02/18/2017; was 10.5 on 02/13/2018. Recheck p.r.n. * Urinary incontinence, unclear etiology. She will have regular toileting per Nursing and it is hoped that she can recover continence. * Constipation. Continue senna/docusate as ordered out of hospital, and the laxatives can be titrated or augmented as needed. Will also order bisacodyl suppository. * Glaucoma. Continue latanoprost. * Prophylaxis. Her mobility appears to be fairly good. There is a relative contraindication to anticoagulation due to recent bleed. She will have SCDs at night and will be mobilized as much as possible to reduce her risk for DVT. FOLLOWUP: She is to have followup in approximately [address] Haynes of Neurosurgery with a new head CT. Additionally, staple removal will be done per Dr. Haynes in 2 weeks. Her primary care provider is Dr. Kaba. Today's Plan: Continue monitoring BP and adjusting medication as needed. Pt is moving quite well - walking to her different therapy appts with support of a walker and therapist - decreasing risk of clot 02/20/18 10:07 Subjective: Doing well today - explaining that the last couple of days did have some "embarrassing moments" because of bowel movements but overall feeling much better today. NO new pain, no fevers/chills. Objective: Vital Signs Temp Pulse Resp BP Pulse Ox 37.0 C 79 16 112/60 95 02/20/18 06:32 02/20/18 06:32 02/20/18 06:32 02/20/18 08:47 02/20/18 06:32 Laboratory Results 02/18/18 06:00 02/18/18 06:00 02/19/18 02/20/18 02/21/18 05:59 05:59 05:59 Intake Total 1436 440 Output Total 700 1100 300 Balance 736 -660 -300 Physical Exam - Physical Exam General Appearance: alert, no apparent distress EENT: pharynx normal Respiratory: lungs clear, normal breath sounds Cardiac/Chest: regular rate, rhythm Abdomen: non-tender, soft Skin: normal color Extremities: other (no swelling of the BLE) Neuro/Psych: alert, normal mood/affect ICD10 Worksheet Patient Problems: Problems Problem Status Onset Bilateral subdural hematomas Acute
[2018-02-20] MEDS: LATANOPROST 0.005% 2.5 ML OPHT DROPS EACHEYE SCH (20:16)
[2018-02-21] MEDS: CHOLECALCIFEROL VIT D3 1,000 UNITS TAB PO SCH (07:56)
[2018-02-21] MEDS: TRANEXAMIC ACID 650 MG TAB PO SCH ×2 (07:56→20:30)
[2018-02-21] MEDS: MULTIVITAMINS 1 EACH TAB PO SCH (07:56)
[2018-02-21] MEDS: LISINOPRIL 10 MG TAB PO SCH (07:56)
--- NOTE | 2018-02-21 10:30 | SOAPPROG ---
SOAP Progress Note Assessment/Plan: Assessment/Plan: * Expressive aphasia, status post bilateral subdural hematomas and craniotomies for evacuation. The etiology is somewhat obscure. There does not appear to be any particular injury to the temporal lobe, but with a midline shift, it could be that the temporal lobe has experienced some compromise. She will be assessed and treated by Speech and Language Pathology to optimize her ability to communicate. * Debility with impaired mobility and activities of daily living. * Contact guard assist for transfers and ambulation with front wheeled walker. Deviates to the right and requires cues to correct. * Continue PT and OT to optimize mobility toward the independent level to modified independent level. * Subdural hematomas, status post bilateral craniotomies. Continue tranexamic acid until followup with Neurosurgery. * Hypertension. Continue lisinopril. Adequate control. * Anemia. Slightly worse than when last checked in the hospital; hemoglobin 10.0 on CBC 02/18/2017; was 10.5 on 02/13/2018. Recheck p.r.n. * Urinary incontinence, unclear etiology. She will have regular toileting per Nursing and it is hoped that she can recover continence. * Constipation. Continue senna/docusate as ordered out of hospital, and the laxatives can be titrated or augmented as needed. Will also order bisacodyl suppository. * Glaucoma. Continue latanoprost. * Prophylaxis. Her mobility appears to be fairly good. There is a relative contraindication to anticoagulation due to recent bleed. She will have SCDs at night and will be mobilized as much as possible to reduce her risk for DVT. FOLLOWUP: She is to have followup on 02/[address] Haynes of Neurosurgery. He would like a new Head CT on day of/day before this visit. . Additionally, staple removal will be done per Dr. Haynes in 2 weeks. Her primary care provider is Dr. Kaba. Today's Plan: Continues to demonstrate ongoing benefit with ON AIR HOST - improved fluency with conversation today. Continues to be continent with bowels. 02/21/18 10:27 Subjective: Feeling well this morning - Great discussion regarding her visits with her family yesterday. no fevers/chills. no new neurologic changes of concern to the patient Objective: Vital Signs Temp Pulse Resp BP Pulse Ox 37.1 C 87 16 125/63 H 94 02/21/18 06:43 02/21/18 06:43 02/21/18 06:43 02/21/18 07:56 02/21/18 06:43 Laboratory Results 02/18/18 06:00 02/18/18 06:00 02/20/18 02/21/18 02/22/18 05:59 05:59 05:59 Intake Total 440 1240 Output Total 1100 1800 300 Balance -660 -560 -300 Physical Exam - Physical Exam General Appearance: alert, no apparent distress, other (sitting pleasantly in her room in her chair) EENT: PERRL/EOMI Respiratory: lungs clear, normal breath sounds Cardiac/Chest: regular rate, rhythm Abdomen: non-tender, soft Neuro/Psych: alert, normal mood/affect ICD10 Worksheet Patient Problems: Problems Problem Status Onset Bilateral subdural hematomas Acute
[2018-02-21] MEDS: LATANOPROST 0.005% 2.5 ML OPHT DROPS EACHEYE SCH (20:31)
[2018-02-22] MEDS: MULTIVITAMINS 1 EACH TAB PO SCH (08:17)
[2018-02-22] MEDS: CHOLECALCIFEROL VIT D3 1,000 UNITS TAB PO SCH (08:17)
[2018-02-22] MEDS: TRANEXAMIC ACID 650 MG TAB PO SCH ×2 (08:17→20:45)
[2018-02-22] MEDS: LISINOPRIL 10 MG TAB PO SCH (08:17)
--- NOTE | 2018-02-22 12:24 | SOAPPROG ---
SOAP Progress Note Assessment/Plan: Assessment: * Expressive aphasia, status post bilateral subdural hematomas and craniotomies for evacuation. The etiology is somewhat obscure. There does not appear to be any particular injury to the temporal lobe, but with a midline shift, it could be that the temporal lobe has experienced some compromise. * Verbal expression distinctly worse today, 02/22/2018. Head CT without worsening bleed or hydrocephalus. Shows improving blood collections and postsurgical gas etc. Discussed with neurosurgeon Dr. Khan, who recommends initiating Lydia is a time at 750 mg p.o. Twice daily in case there is subclinical seizure activity causing fluctuations in her expressive language. * Continue Speech and Language Pathology to optimize her ability to communicate. * Debility with impaired mobility and activities of daily living. * Initial functional independence measure is 88 on 02/22/2018. She prefers the walker to a cane. Standby assist for bed mobility and transfers, ambulated 300 ft with a front wheeled walker. Upper body, lower body and dressing and grooming and hygiene are done with supervision. Bath transfer requires standby assist to contact guard assist she bathes with supervision. She has right hemineglect. * Continue PT and OT to optimize mobility toward the independent level to modified independent level. * Cognitive impairment. * Decreased memory, new learning, problem solving, attention. Inability to recall details of newspaper articles she has just read. * Continue PRESCHOOL PROGRAM DIRECTOR. * Subdural hematomas, status post bilateral craniotomies. Continue tranexamic acid until followup with Neurosurgery. * Hypertension. Continue lisinopril. Adequate control. * Anemia. Slightly worse than when last checked in the hospital; hemoglobin 10.0 on CBC 02/18/2017; was 10.5 on 02/13/2018. Recheck p.r.n. * Urinary incontinence, unclear etiology. Appears to be resolved. * Constipation. Continue senna/docusate as ordered out of hospital, and the laxatives can be titrated or augmented as needed. Will also order bisacodyl suppository. * Glaucoma. Continue latanoprost. * Prophylaxis. Her mobility appears to be fairly good. There is a relative contraindication to anticoagulation due to recent bleed. She will have SCDs at night and will be mobilized as much as possible to reduce her risk for DVT. Attended staffing, 15 min. Discussed with case management, dietitian, nursing, PT, OT, PRESCHOOL PROGRAM DIRECTOR. Has a local niece who is involved in her care. Patient likely prefers to return to independent living but she might need a higher level of care. Set tentative discharge date for 03/09/2018. FOLLOWUP: She is to have followup in approximately [address] Haynes of Neurosurgery with a new head CT. Staple removal will be done per Dr. Haynes at follow-up visit Her primary care provider is Dr. Kaba. 02/22/18 17:24 Subjective: No overt complaints, but very difficult to understand today. Denies insomnia or pain. Denies cough or dyspnea. Objective: Vital Signs Temp Pulse Resp BP Pulse Ox 36.8 C 79 16 117/71 95 02/22/18 05:43 02/22/18 05:43 02/22/18 05:43 02/22/18 08:20 02/22/18 05:43 Laboratory Results 02/18/18 06:00 02/18/18 06:00 02/21/18 02/22/18 02/23/18 05:59 05:59 05:59 Intake Total 1240 1120 450 Output Total 1800 900 500 Balance -560 220 -50 - Time Spent With Patient Time Spent With Patient: Greater than 35 min floor time today, including more than 50% of time in coordination of care during staffing meeting, and counseling patient. Physical Exam - Physical Exam General Appearance: WD/WN, alert, no apparent distress Respiratory: No respiratory distress, No accessory muscle use Skin: normal color, warm/dry Neuro/Psych: alert, normal mood/affect, motor weakness (Ataxic bilateral upper extremities.), speech abnormalities (Severe expressive aphasia), No abnormal marketing content specialist II-XII ICD10 Worksheet Patient Problems: Problems Problem Status Onset Bilateral subdural hematomas Acute
[2018-02-22] MEDS: levETIRAcetam 250 MG TAB PO SCH (20:46)
[2018-02-22] MEDS: LATANOPROST 0.005% 2.5 ML OPHT DROPS EACHEYE SCH (20:52)
[2018-02-22] MEDS ORDERED: levETIRAcetam 500 MG TAB PO SCH (21:00)
[2018-02-23] MEDS: levETIRAcetam 250 MG TAB PO SCH ×2 (08:00→21:24)
[2018-02-23] MEDS: MULTIVITAMINS 1 EACH TAB PO SCH (08:00)
[2018-02-23] MEDS: CHOLECALCIFEROL VIT D3 1,000 UNITS TAB PO SCH (08:01)
[2018-02-23] MEDS: TRANEXAMIC ACID 650 MG TAB PO SCH ×2 (08:01→21:25)
[2018-02-23] MEDS: LISINOPRIL 10 MG TAB PO SCH (08:02)
--- NOTE | 2018-02-23 14:07 | SOAPPROG ---
SOAP Progress Note Assessment/Plan: Assessment: * Expressive aphasia, status post bilateral subdural hematomas and craniotomies for evacuation. The etiology is somewhat obscure. There does not appear to be any particular injury to the temporal lobe, but with a midline shift, it could be that the temporal lobe has experienced some compromise. * Verbal expression distinctly worse 02/22/2018. Head CT without worsening bleed or hydrocephalus. Shows improving blood collections and postsurgical gas etc. Discussed with neurosurgeon Dr. Khan, who recommended initiating levetiracetam at 750 mg p.o. twice daily in case there is subclinical seizure activity causing fluctuations in her expressive language. Begun 02/23/2018 in the evening. * Expressive aphasia appears much improved today 02/23/2018. * Continue Speech and Language Pathology to optimize her ability to communicate. * Debility with impaired mobility and activities of daily living. * Initial functional independence measure is 88 on 02/22/2018. She prefers the walker to a cane. Standby assist for bed mobility and transfers, ambulated 300 ft with a front wheeled walker. Upper body, lower body and dressing and grooming and hygiene are done with supervision. Bath transfer requires standby assist to contact guard assist she bathes with supervision. She has right hemineglect. * Continue PT and OT to optimize mobility toward the independent level to modified independent level. * Cognitive impairment. * Decreased memory, new learning, problem solving, attention. Inability to recall details of newspaper articles she has just read. * Continue PRISON KEEPER. * Subdural hematomas, status post bilateral craniotomies. Continue tranexamic acid until followup with Neurosurgery. * Hypertension. Continue lisinopril. Adequate control. * Anemia. Slightly worse than when last checked in the hospital; hemoglobin 10.0 on CBC 02/18/2017; was 10.5 on 02/13/2018. Recheck p.r.n. * Urinary incontinence, unclear etiology. Appears to be resolved. * Constipation. Continue senna/docusate as ordered out of hospital, and the laxatives can be titrated or augmented as needed. Will also order bisacodyl suppository. * Glaucoma. Continue latanoprost. * Prophylaxis. Her mobility appears to be fairly good. There is a relative contraindication to anticoagulation due to recent bleed. She will have SCDs at night and will be mobilized as much as possible to reduce her risk for DVT. Has a local niece who is involved in her care. Patient likely prefers to return to independent living but she might need a higher level of care. Set tentative discharge date for 03/09/2018. FOLLOWUP: She is to have followup in approximately [address] Haynes of Neurosurgery with a new head CT. Staple removal will be done per Dr. Haynes at follow-up visit Her primary care provider is Dr. Kaba. 02/23/18 14:04 Subjective: No complaints. Slept well. Not in pain. Has many questions about her progress , current treatment and prognosis. Objective: Vital Signs Temp Pulse Resp BP Pulse Ox 36.3 C 75 16 116/67 97 02/23/18 06:15 02/23/18 06:15 02/23/18 06:15 02/23/18 08:02 02/23/18 06:15 Laboratory Results 02/18/18 06:00 02/18/18 06:00 02/22/18 02/23/18 02/24/18 05:59 05:59 05:59 Intake Total 1120 950 270 Output Total 900 1650 Balance 220 -700 270 Physical Exam - Physical Exam General Appearance: WD/WN, alert, no apparent distress Respiratory: No respiratory distress, No accessory muscle use Skin: normal color, warm/dry Neuro/Psych: alert, normal mood/affect, oriented x 3, speech abnormalities ( Expressive aphasia but able to communicate effectively with some circumlocution and hesitancy.) ICD10 Worksheet Patient Problems: Problems Problem Status Onset Bilateral subdural hematomas Acute
[2018-02-24] MEDS: LATANOPROST 0.005% 2.5 ML OPHT DROPS EACHEYE SCH ×2 (06:39→21:04)
[2018-02-24] MEDS: TRANEXAMIC ACID 650 MG TAB PO SCH ×2 (10:02→21:01)
[2018-02-24] MEDS: levETIRAcetam 250 MG TAB PO SCH ×2 (10:05→21:01)
[2018-02-24] MEDS: LISINOPRIL 10 MG TAB PO SCH (10:05)
[2018-02-24] MEDS: MULTIVITAMINS 1 EACH TAB PO SCH (10:07)
[2018-02-24] MEDS: CHOLECALCIFEROL VIT D3 1,000 UNITS TAB PO SCH (10:08)
--- NOTE | 2018-02-24 12:10 | SOAPPROG ---
SOAP Progress Note Assessment/Plan: Assessment: * Expressive aphasia, status post bilateral subdural hematomas and craniotomies for evacuation. The etiology is somewhat obscure. There does not appear to be any particular injury to the temporal lobe, but with a midline shift, it could be that the temporal lobe has experienced some compromise. * Verbal expression distinctly worse 02/22/2018. Head CT without worsening bleed or hydrocephalus. Shows improving blood collections and postsurgical gas etc. Discussed with neurosurgeon Dr. Khan, who recommended initiating levetiracetam at 750 mg p.o. twice daily in case there is subclinical seizure activity causing fluctuations in her expressive language. Begun 02/23/2018 in the evening. * Expressive aphasia appears much improved 02/23/2018 and 02/24/2018. * Continue Speech and Language Pathology to optimize her ability to communicate. * Debility with impaired mobility and activities of daily living. * Initial functional independence measure is 88 on 02/22/2018. She prefers the walker to a cane. Standby assist for bed mobility and transfers, ambulated 300 ft with a front wheeled walker. Upper body, lower body and dressing and grooming and hygiene are done with supervision. Bath transfer requires standby assist to contact guard assist she bathes with supervision. She has right hemineglect. * Continue PT and OT to optimize mobility toward the independent level to modified independent level. * Cognitive impairment. * Decreased memory, new learning, problem solving, attention. Inability to recall details of newspaper articles she has just read. * Continue TIRE MOLD ENGRAVER. * Subdural hematomas, status post bilateral craniotomies. Continue tranexamic acid until followup with Neurosurgery. * Hypertension. Continue lisinopril. Adequate control. * Anemia. Slightly worse than when last checked in the hospital; hemoglobin 10.0 on CBC 02/18/2017; was 10.5 on 02/13/2018. Recheck p.r.n. * Urinary incontinence, unclear etiology. Appears to be resolved. * Constipation. Continue senna/docusate as ordered out of hospital, and the laxatives can be titrated or augmented as needed. Will also order bisacodyl suppository. * Glaucoma. Continue latanoprost. * Prophylaxis. Her mobility appears to be fairly good. There is a relative contraindication to anticoagulation due to recent bleed. She will have SCDs at night and will be mobilized as much as possible to reduce her risk for DVT. Has a local niece who is involved in her care. Patient likely prefers to return to independent living but she might need a higher level of care. Set tentative discharge date for 03/09/2018. FOLLOWUP: She is to have followup with Dr. Haynes of Neurosurgery on 2017. Staple removal will be done per Dr. Haynes at follow-up visit Her primary care provider is Dr. Kaba. 02/24/18 12:08 Subjective: Expresses in security regarding her prognosis. Denies any specific complaints. Sleeping well, not in pain, no fevers or chills, no cough or dyspnea. Objective: Vital Signs Temp Pulse Resp BP Pulse Ox 36.8 C 84 17 124/68 H 96 02/24/18 08:00 02/24/18 08:00 02/24/18 08:00 02/24/18 08:00 02/24/18 08:00 Laboratory Results 02/18/18 06:00 02/18/18 06:00 02/23/18 02/24/18 02/25/18 05:59 05:59 05:59 Intake Total 950 910 Output Total 1650 1150 Balance -700 -240 Physical Exam - Physical Exam General Appearance: WD/WN, alert, no apparent distress Respiratory: normal breath sounds, No crackles, No rhonchi, No wheezing Cardiac/Chest: regular rate, rhythm, No edema, No diastolic murmur, No systolic murmur Skin: normal color, warm/dry Neuro/Psych: alert, normal mood/affect, oriented x 3, aphasia (Expressive) ICD10 Worksheet Patient Problems: Problems Problem Status Onset Bilateral subdural hematomas Acute
[2018-02-25] MEDS: TRANEXAMIC ACID 650 MG TAB PO SCH ×2 (08:27→22:09)
[2018-02-25] MEDS: MULTIVITAMINS 1 EACH TAB PO SCH (08:27)
[2018-02-25] MEDS: levETIRAcetam 250 MG TAB PO SCH ×2 (08:27→22:09)
[2018-02-25] MEDS: LISINOPRIL 10 MG TAB PO SCH (08:27)
[2018-02-25] MEDS: CHOLECALCIFEROL VIT D3 1,000 UNITS TAB PO SCH (08:27)
--- NOTE | 2018-02-25 14:26 | SOAPPROG ---
SOAP Progress Note Assessment/Plan: Assessment: * Expressive aphasia, status post bilateral subdural hematomas and craniotomies for evacuation. The etiology is somewhat obscure. There does not appear to be any particular injury to the temporal lobe, but with a midline shift, it could be that the temporal lobe has experienced some compromise. * Verbal expression distinctly worse 02/22/2018. Head CT without worsening bleed or hydrocephalus. Shows improving blood collections and postsurgical gas etc. Discussed with neurosurgeon Dr. Khan, who recommended initiating levetiracetam at 750 mg p.o. twice daily in case there is subclinical seizure activity causing fluctuations in her expressive language. Begun 02/23/2018 in the evening. * Expressive aphasia appears much improved since 02/22/2018. * Continue Speech and Language Pathology to optimize her ability to communicate. * Debility with impaired mobility and activities of daily living. * Initial functional independence measure is 88 on 02/22/2018. She prefers the walker to a cane. Standby assist for bed mobility and transfers, ambulated 300 ft with a front wheeled walker. Upper body, lower body and dressing and grooming and hygiene are done with supervision. Bath transfer requires standby assist to contact guard assist she bathes with supervision. She has right hemineglect. * Continue PT and OT to optimize mobility toward the independent level to modified independent level. * Cognitive impairment. * Decreased memory, new learning, problem solving, attention, improving, though MAILROOM MESSENGER continues to assess that she will need 24 hr supervision as of 02/25/2018.. * Continue MAILROOM MESSENGER. * Subdural hematomas, status post bilateral craniotomies. Continue tranexamic acid until followup with Neurosurgery. * Hypertension. Continue lisinopril. Adequate control. * Anemia. Slightly worse than when last checked in the hospital; hemoglobin 10.0 on CBC 02/18/2017; was 10.5 on 02/13/2018. Recheck p.r.n. * Urinary incontinence, unclear etiology. Resolved. * Constipation. Continue senna/docusate as ordered out of hospital, and the laxatives can be titrated or augmented as needed. Will also order bisacodyl suppository. * Glaucoma. Continue latanoprost. * Prophylaxis. Her mobility appears to be fairly good. There is a relative contraindication to anticoagulation due to recent bleed. She will have SCDs at night and will be mobilized as much as possible to reduce her risk for DVT. Has a local niece who is involved in her care. Patient likely prefers to return to independent living but she might need a higher level of care. Set tentative discharge date for 03/09/2018. FOLLOWUP: She is to have followup with Dr. Haynes of Neurosurgery on 2017. Staple removal will be done per Dr. Haynes at follow-up visit Her primary care provider is Dr. Kaba. 02/25/18 14:22 Subjective: No complaints. Aware that she is going to see neurosurgeon Dr. Haynes tomorrow. Hopes to be able to be discharged home. Objective: Vital Signs Temp Pulse Resp BP Pulse Ox 36.4 C 75 18 119/67 97 02/25/18 06:22 02/25/18 06:22 02/25/18 06:22 02/25/18 08:27 02/25/18 06:22 Laboratory Results 02/18/18 06:00 02/18/18 06:00 02/24/18 02/25/18 02/26/18 05:59 05:59 05:59 Intake Total 910 200 600 Output Total 1150 800 Balance -240 -600 600 Physical Exam - Physical Exam General Appearance: WD/WN, alert, no apparent distress Respiratory: No respiratory distress, No accessory muscle use Skin: normal color, warm/dry Neuro/Psych: alert, normal mood/affect, oriented x 3, aphasia (Expressive) ICD10 Worksheet Patient Problems: Problems Problem Status Onset Bilateral subdural hematomas Acute
[2018-02-25] MEDS: SENNOSIDES/DOCUSATE SODIUM TAB PO PRN (17:47)
[2018-02-25] MEDS: LATANOPROST 0.005% 2.5 ML OPHT DROPS EACHEYE SCH (22:10)
[2018-02-26] MEDS: TRANEXAMIC ACID 650 MG TAB PO SCH ×2 (07:49→19:50)
[2018-02-26] MEDS: levETIRAcetam 250 MG TAB PO SCH ×2 (07:50→19:49)
[2018-02-26] MEDS: LISINOPRIL 10 MG TAB PO SCH (07:51)
[2018-02-26] MEDS: MULTIVITAMINS 1 EACH TAB PO SCH (07:51)
[2018-02-26] MEDS: CHOLECALCIFEROL VIT D3 1,000 UNITS TAB PO SCH (07:52)
--- NOTE | 2018-02-26 13:58 | SOAPPROG ---
SOAP Progress Note Assessment/Plan: Assessment: * Expressive aphasia, status post bilateral subdural hematomas and craniotomies for evacuation. The etiology is somewhat obscure. There does not appear to be any particular injury to the temporal lobe, but with a midline shift, it could be that the temporal lobe has experienced some compromise. * Verbal expression distinctly worse 02/22/2018. Head CT without worsening bleed or hydrocephalus. Shows improving blood collections and postsurgical gas etc. Discussed with neurosurgeon Dr. Khan, who recommended initiating levetiracetam at 750 mg p.o. twice daily in case there is subclinical seizure activity causing fluctuations in her expressive language. Begun 02/23/2018 in the evening. * Expressive aphasia appears much improved since 02/22/2018. * Continue Speech and Language Pathology to optimize her ability to communicate. * Debility with impaired mobility and activities of daily living. * Initial functional independence measure is 88 on 02/22/2018. She prefers the walker to a cane. Standby assist for bed mobility and transfers, ambulated 300 ft with a front wheeled walker. Upper body, lower body and dressing and grooming and hygiene are done with supervision. Bath transfer requires standby assist to contact guard assist she bathes with supervision. She has right hemineglect. * Continue PT and OT to optimize mobility toward the independent level to modified independent level. * Cognitive impairment. * Decreased memory, new learning, problem solving, attention, improving, though CUSTOMER ORDERS CLERK continues to assess that she will need 24 hr supervision as of 02/25/2018.. * Continue CUSTOMER ORDERS CLERK. * Subdural hematomas, status post bilateral craniotomies. Continue tranexamic acid until followup with Neurosurgery. * Hypertension. Continue lisinopril. Adequate control. * Anemia. Slightly worse than when last checked in the hospital; hemoglobin 10.0 on CBC 02/18/2017; was 10.5 on 02/13/2018. Recheck p.r.n. * Urinary incontinence, unclear etiology. Resolved. * Constipation. Continue senna/docusate as ordered out of hospital, and the laxatives can be titrated or augmented as needed. Will also order bisacodyl suppository. * Glaucoma. Continue latanoprost. * Prophylaxis. Her mobility appears to be fairly good. There is a relative contraindication to anticoagulation due to recent bleed. She will have SCDs at night and will be mobilized as much as possible to reduce her risk for DVT. Has a local niece who is involved in her care. Patient likely prefers to return to independent living but she might need a higher level of care. Set tentative discharge date for 03/09/2018. FOLLOWUP: She is to have followup with Dr. Haynes of Neurosurgery on 2017. Staple removal will be done per Dr. Haynes at follow-up visit Her primary care provider is Dr. Kaba. 02/26/18 13:57 Subjective: No complaints. Slept well. Ambulating in the barba with physical therapy and trying to get view of the [place] out of the room on the southwest corner. Objective: Vital Signs Temp Pulse Resp BP Pulse Ox 36.4 C 76 13 101/73 97 02/26/18 07:44 02/26/18 07:44 02/26/18 07:44 02/26/18 07:44 02/26/18 07:44 Laboratory Results 02/18/18 06:00 02/18/18 06:00 02/25/18 02/26/18 02/27/18 05:59 05:59 05:59 Intake Total 200 900 400 Output Total 800 1200 Balance -600 -300 400 Physical Exam - Physical Exam General Appearance: WD/WN, alert, no apparent distress Respiratory: No respiratory distress, No accessory muscle use Skin: normal color, warm/dry Neuro/Psych: no motor/sensory deficits, alert, normal mood/affect, oriented x 3 , speech abnormalities (Expressive aphasia) ICD10 Worksheet Patient Problems: Problems Problem Status Onset Bilateral subdural hematomas Acute
[2018-02-26] MEDS: LATANOPROST 0.005% 2.5 ML OPHT DROPS EACHEYE SCH (19:49)
[2018-02-27] MEDS: TRANEXAMIC ACID 650 MG TAB PO SCH ×2 (07:55→20:52)
[2018-02-27] MEDS: MULTIVITAMINS 1 EACH TAB PO SCH (07:55)
[2018-02-27] MEDS: CHOLECALCIFEROL VIT D3 1,000 UNITS TAB PO SCH (07:56)
[2018-02-27] MEDS: LISINOPRIL 10 MG TAB PO SCH (07:56)
[2018-02-27] MEDS: levETIRAcetam 250 MG TAB PO SCH ×2 (07:56→20:52)
--- NOTE | 2018-02-27 13:24 | HOSPPROG ---
Hospitalist Progress Note Assessment/Plan: Assessment: 87 yo F p/w bilat SDH 2/2 fall, requiring craniectomy bilat Plan: # SDH. Bilat, randy removed and healing well, bleed resulting in exp aphasia and mild R neglect w/ R mouth palsy, repeat HCT stable w/o expansion - cont keppra and TXA - f/u w/ Dr. Haynes as oupt - ongoing PT/OT/POLICE CAPTAIN # HTN. Chronic, cont lisinopril 10 daily # Anemia. Hgb 10.5, no e/o bleeding Diet. As rosaline PPx. Mod risk, SCDs, hold pharm given bleed Code. Full Dispo. Ongoing therapy needs, anticipate 03/09 Subjective: patient attempting to read materials, reports she is able to focus Objective: Vital Signs Temp Pulse Resp BP Pulse Ox 36.8 C 81 18 121/61 H 96 02/27/18 08:00 02/27/18 08:00 02/27/18 08:00 02/27/18 08:00 02/27/18 08:00 Laboratory Results 02/18/18 06:00 02/18/18 06:00 02/26/18 02/27/18 02/28/18 05:59 05:59 05:59 Intake Total 900 570 118 Output Total 1200 Balance -300 570 118 - Physical Exam Constitutional: no apparent distress, not in pain, chronically ill appearing, No uncomfortable Cardiovascular: regular rate and rhythym, no murmur, rub, or gallop, No edema Respiratory: no respiratory distress, no rales or rhonchi, clear to auscultation Gastrointestinal: normoactive bowel sounds, soft, non-tender abdomen, no palpable masses, No distension Skin: other (no erythema/tenderness at bilat scalp surg sites) Neurologic: AAOx3, sensation intact bilaterally, weakness (motor 5/5 bilat ), facial droop (R mouth), other (L tongue deviation) Psychiatric: not anxious, thought process linear, other (word finding difficulty ), No agitated ICD10 Worksheet Patient Problems: Problems Problem Status Onset Bilateral subdural hematomas Acute
[2018-02-27] MEDS: LATANOPROST 0.005% 2.5 ML OPHT DROPS EACHEYE SCH (20:53)
[2018-02-28] MEDS: LISINOPRIL 10 MG TAB PO SCH (07:57)
[2018-02-28] MEDS: levETIRAcetam 250 MG TAB PO SCH ×2 (07:57→20:39)
[2018-02-28] MEDS: CHOLECALCIFEROL VIT D3 1,000 UNITS TAB PO SCH (07:57)
[2018-02-28] MEDS: TRANEXAMIC ACID 650 MG TAB PO SCH ×2 (07:58→20:39)
[2018-02-28] MEDS: MULTIVITAMINS 1 EACH TAB PO SCH (07:58)
--- NOTE | 2018-02-28 12:26 | HOSPPROG ---
Hospitalist Progress Note Assessment/Plan: Assessment: 87 yo F p/w bilat SDH 2/2 fall, requiring craniectomy bilat Plan: # SDH. Bilat, radny removed and healing well, bleed resulting in exp aphasia and mild R neglect w/ R mouth palsy, repeat HCT stable w/o expansion - cont keppra and TXA - f/u w/ Dr. Haynes as oupt - ongoing PT/OT/COLLISION MECHANIC, patient engaging in modalities well - she is concerned about her ability/inability to drive after this hospitalization # HTN. Chronic, cont lisinopril 10 daily # Anemia. Hgb 10.5, no e/o bleeding Diet. Regular PPx. Mod risk, SCDs, hold pharm given bleed Code. Full Dispo. Ongoing therapy needs, anticipate 03/09 Subjective: patient attempting to read paper, reports that her reading comprehension is a little slower than baseline but she is managing Objective: Vital Signs Temp Pulse Resp BP Pulse Ox 36.8 C 63 16 129/73 H 95 02/28/18 06:34 02/28/18 06:34 02/28/18 06:34 02/28/18 07:57 02/28/18 06:34 Laboratory Results 02/18/18 06:00 02/18/18 06:00 02/27/18 02/28/18 03/01/18 05:59 05:59 05:59 Intake Total 570 928 120 Balance 570 928 120 - Physical Exam Constitutional: no apparent distress, appears nourished, not in pain, No uncomfortable Cardiovascular: regular rate and rhythym, no murmur, rub, or gallop, No edema Respiratory: no respiratory distress, no rales or rhonchi, clear to auscultation Gastrointestinal: normoactive bowel sounds, soft, non-tender abdomen, no palpable masses Neurologic: AAOx3, sensation intact bilaterally, facial droop (R mouth), other ( L tongue deviation, mild expressive aphasia w/ some delayed speech), No weakness Psychiatric: interacting appropriately, not anxious, not encephalopathic, thought process linear ICD10 Worksheet Patient Problems: Problems Problem Status Onset Bilateral subdural hematomas Acute
[2018-02-28] MEDS: LATANOPROST 0.005% 2.5 ML OPHT DROPS EACHEYE SCH (20:40)
[2018-03-01] MEDS ORDERED: levETIRAcetam 500 MG TAB PO ONE (09:00)
[2018-03-01] MEDS: MULTIVITAMINS 1 EACH TAB PO SCH (09:20)
[2018-03-01] MEDS: TRANEXAMIC ACID 650 MG TAB PO SCH ×2 (09:20→21:04)
[2018-03-01] MEDS: CHOLECALCIFEROL VIT D3 1,000 UNITS TAB PO SCH (09:20)
[2018-03-01] MEDS: LISINOPRIL 10 MG TAB PO SCH (09:20)
[2018-03-01] MEDS: levETIRAcetam 250 MG TAB PO SCH ×2 (09:28→21:04)
[2018-03-01] MEDS: SENNOSIDES/DOCUSATE SODIUM TAB PO PRN (14:51)
--- NOTE | 2018-03-01 15:00 | SOAPPROG ---
SOAP Progress Note Assessment/Plan: Assessment: * Expressive aphasia, status post bilateral subdural hematomas and craniotomies for evacuation. The etiology is somewhat obscure. There does not appear to be any particular injury to the temporal lobe, but with a midline shift, it could be that the temporal lobe has experienced some compromise. * Verbal expression distinctly worse 02/22/2018. Head CT without worsening bleed or hydrocephalus. Shows improving blood collections and postsurgical gas etc. Discussed with neurosurgeon Dr. Khan, who recommended initiating levetiracetam at 750 mg p.o. twice daily in case there is subclinical seizure activity causing fluctuations in her expressive language. Begun 02/23/2018 in the evening. * Expressive aphasia appears much improved since 02/22/2018. * Continue Speech and Language Pathology to optimize her ability to communicate. * Debility with impaired mobility and activities of daily living. * Initial functional independence measure is 84 on 02/22/2018, improved to 95 as of 03/01/2018. Independent in her room. Ambulated 400 ft with front wheeled walker, independent. Modified independent to independent with activities of daily living. OT advising no driving. * Continue PT and OT to optimize mobility toward the independent level to modified independent level. * Cognitive impairment. * Decreased memory, new learning, problem solving, attention, improving. Therapy staff advising discharge home but with niece or friends to provide supervision for for several days. * Continue CONCRETE MIXER TRUCK DRIVER. * Subdural hematomas, status post bilateral craniotomies. Tranexamic acid discussed with Dr. Haynes. Plan is to continue until subdural hematomas are completely resolved; expect several months. * Hypertension. Continue lisinopril. Adequate control. * Anemia. Slightly worse than when last checked in the hospital; hemoglobin 10.0 on CBC 02/18/2017; was 10.5 on 02/13/2018. Recheck p.r.n. * Urinary incontinence, unclear etiology. Resolved. * Constipation. Continue senna/docusate as ordered out of hospital, and the laxatives can be titrated or augmented as needed. Will also order bisacodyl suppository. * Glaucoma. Continue latanoprost. * Prophylaxis. Her mobility appears to be fairly good. There is a relative contraindication to anticoagulation due to recent bleed. She will have SCDs at night and will be mobilized as much as possible to reduce her risk for DVT. Attended staffing, 15 min. Discussed with case management, dietitian, nursing, PT, OT, CONCRETE MIXER TRUCK DRIVER. Discharge date set for 03/05/2018. She will have home PT OT and CONCRETE MIXER TRUCK DRIVER. She is advised not to drive and to have a pre driving screen if she wants to return to driving. Advise niece or friends to be with her for for several days after discharge. FOLLOWUP: She is to have followup with Dr. Haynes of Neurosurgery on 2017. Staple removal will be done per Dr. Haynes at follow-up visit Her primary care provider is Dr. Kaba. This patient needs a walker. She has a mobility limitation that significantly impairs 1 or more mobility related ADLs in the home, she is able to use the walker safely, and functional mobility deficit cannot be resolved with a cane. 03/01/18 15:18 Subjective: No complaints. Sleeping well. Not in pain. No cough or dyspnea, no fevers chills. In good spirits. Objective: Vital Signs Temp Pulse Resp BP Pulse Ox 36.0 C 82 18 114/58 L 95 03/01/18 08:00 03/01/18 08:00 03/01/18 08:00 03/01/18 09:20 03/01/18 08:00 Laboratory Results 02/18/18 06:00 02/18/18 06:00 02/28/18 03/01/18 03/02/18 05:59 05:59 05:59 Intake Total 928 1298 120 Output Total 700 350 Balance 928 598 -230 - Time Spent With Patient Time Spent With Patient: Greater than 35 min floor time today, including more than 50% of time in coordination of care during staffing meeting, and counseling patient. Physical Exam - Physical Exam General Appearance: WD/WN, alert, no apparent distress Respiratory: No respiratory distress, No accessory muscle use Skin: normal color, warm/dry, other (Scalp incisions with randy removed, clean dry and intact, minimal eschar.) Neuro/Psych: alert, normal mood/affect, oriented x 3, speech abnormalities ( Speech much improved but still with expressive aphasia.) ICD10 Worksheet Patient Problems: Problems Problem Status Onset Bilateral subdural hematomas Acute
[2018-03-01] MEDS: LATANOPROST 0.005% 2.5 ML OPHT DROPS EACHEYE SCH (21:03)
[2018-03-02] MEDS: LISINOPRIL 10 MG TAB PO SCH (08:44)
[2018-03-02] MEDS: CHOLECALCIFEROL VIT D3 1,000 UNITS TAB PO SCH (08:45)
[2018-03-02] MEDS: TRANEXAMIC ACID 650 MG TAB PO SCH ×2 (08:45→21:07)
[2018-03-02] MEDS: MULTIVITAMINS 1 EACH TAB PO SCH (08:45)
[2018-03-02] MEDS: levETIRAcetam 250 MG TAB PO SCH ×2 (08:45→21:07)
--- NOTE | 2018-03-02 14:44 | SOAPPROG ---
SOAP Progress Note Assessment/Plan: Assessment: * Expressive aphasia, status post bilateral subdural hematomas and craniotomies for evacuation. * Verbal expression distinctly worse 02/22/2018. Head CT without worsening bleed or hydrocephalus. Shows improving blood collections and postsurgical gas etc. Discussed with neurosurgeon Dr. Khan, who recommended initiating levetiracetam at 750 mg p.o. twice daily in case there is subclinical seizure activity causing fluctuations in her expressive language. Begun 02/23/2018 in the evening. * Expressive aphasia appears much improved since 02/22/2018. * Continue Speech and Language Pathology to optimize her ability to communicate. * Debility with impaired mobility and activities of daily living. * Initial functional independence measure is 84 on 02/22/2018, improved to 95 as of 03/01/2018. Independent in her room. Ambulated 400 ft with front wheeled walker, independent. Modified independent to independent with activities of daily living. OT advising no driving. * Continue PT and OT to optimize mobility toward the independent level to modified independent level. * Cognitive impairment. * Decreased memory, new learning, problem solving, attention, improving. Therapy staff advising discharge home but with niece or friends to provide supervision for for several days. * Continue NURSE GYNECOLOGY. * Subdural hematomas, status post bilateral craniotomies. Tranexamic acid discussed with Dr. Haynes. Plan is to continue until subdural hematomas are completely resolved; expect several months. * Hypertension. Continue lisinopril. Adequate control. * Anemia. Slightly worse than when last checked in the hospital; hemoglobin 10.0 on CBC 02/18/2017; was 10.5 on 02/13/2018. Recheck p.r.n. * Urinary incontinence, unclear etiology. Resolved. * Constipation. Continue senna/docusate as ordered out of hospital, and the laxatives can be titrated or augmented as needed. Will also order bisacodyl suppository. * Glaucoma. Continue latanoprost. * Prophylaxis. Her mobility appears to be fairly good. There is a relative contraindication to anticoagulation due to recent bleed. Discharge date set for 03/05/2018. She will have home PT OT and NURSE GYNECOLOGY. She is advised not to drive and to have a pre driving screen if she wants to return to driving. Advise niece or friends to be with her for for several days after discharge. FOLLOWUP: Had follow up with Dr. Haynes of Neurosurgery on 02/26/2018, and randy were removed. Her primary care provider is Dr. Kaba. This patient needs a walker. She has a mobility limitation that significantly impairs 1 or more mobility related ADLs in the home, she is able to use the walker safely, and functional mobility deficit cannot be resolved with a cane. 03/02/18 14:41 Subjective: No complaints. Discussed discharge medications and discharge process. Looking for to going home on Thursday. Objective: Vital Signs Temp Pulse Resp BP Pulse Ox 37.0 C 74 15 116/66 94 03/02/18 06:24 03/02/18 06:24 03/02/18 06:24 03/02/18 08:44 03/02/18 06:24 Laboratory Results 02/18/18 06:00 02/18/18 06:00 03/01/18 03/02/18 03/03/18 05:59 05:59 05:59 Intake Total 1298 490 120 Output Total 700 650 Balance 598 -160 120 Physical Exam - Physical Exam General Appearance: WD/WN, alert, no apparent distress Respiratory: No respiratory distress, No accessory muscle use Skin: normal color, warm/dry Neuro/Psych: no motor/sensory deficits, alert, normal mood/affect, oriented x 3 , aphasia (Expressive: Speaks slowly with some word-finding difficulties but able to express herself adequately.), No abnormal gait (With front wheeled walker.) ICD10 Worksheet Patient Problems: Problems Problem Status Onset Bilateral subdural hematomas Acute
[2018-03-02] MEDS: LATANOPROST 0.005% 2.5 ML OPHT DROPS EACHEYE SCH (21:07)
[2018-03-03] MEDS: levETIRAcetam 250 MG TAB PO SCH ×2 (09:01→20:30)
[2018-03-03] MEDS: CHOLECALCIFEROL VIT D3 1,000 UNITS TAB PO SCH (09:02)
[2018-03-03] MEDS: MULTIVITAMINS 1 EACH TAB PO SCH (09:02)
[2018-03-03] MEDS: TRANEXAMIC ACID 650 MG TAB PO SCH ×2 (09:02→20:30)
[2018-03-03] MEDS: LISINOPRIL 10 MG TAB PO SCH (09:02)
--- NOTE | 2018-03-03 09:42 | SOAPPROG ---
SOAP Progress Note Assessment/Plan: Assessment: * Expressive aphasia, status post bilateral subdural hematomas and craniotomies for evacuation. * Verbal expression distinctly worse 02/22/2018. Head CT without worsening bleed or hydrocephalus. Shows improving blood collections and postsurgical gas etc. Discussed with neurosurgeon Dr. Khan, who recommended initiating levetiracetam at 750 mg p.o. twice daily in case there is subclinical seizure activity causing fluctuations in her expressive language. Begun 02/23/2018 in the evening. Duration will be per Neurosurgery. * Expressive aphasia appears much improved since 02/22/2018. * Continue Speech and Language Pathology to optimize her ability to communicate. * Debility with impaired mobility and activities of daily living. * Initial functional independence measure is 84 on 02/22/2018, improved to 95 as of 03/01/2018. Independent in her room. Ambulated 400 ft with front wheeled walker, independent. Modified independent to independent with activities of daily living. OT advising no driving. * Continue PT and OT to optimize mobility toward the independent level to modified independent level. * Cognitive impairment. * Decreased memory, new learning, problem solving, attention, improving. Therapy staff advising discharge home but with niece or friends to provide supervision for for several days. * Continue SOFTWARE ENGINEERING SUPERVISOR. * Subdural hematomas, status post bilateral craniotomies. Tranexamic acid discussed with Dr. Haynes. Plan is to continue until subdural hematomas are completely resolved; expect several months. * Hypertension. Continue lisinopril. Adequate control. * Anemia. Slightly worse than when last checked in the hospital; hemoglobin 10.0 on CBC 02/18/2017; was 10.5 on 02/13/2018. Recheck p.r.n. * Urinary incontinence, unclear etiology. Resolved. * Constipation. Continue senna/docusate as ordered out of hospital, and the laxatives can be titrated or augmented as needed. Will also order bisacodyl suppository. * Glaucoma. Continue latanoprost. * Prophylaxis. Her mobility appears to be fairly good. There is a relative contraindication to anticoagulation due to recent bleed. Discharge date set for 03/05/2018. She will have home PT OT and SOFTWARE ENGINEERING SUPERVISOR. She is advised not to drive and to have a pre driving screen if she wants to return to driving. Advise niece or friends to be with her for for several days after discharge. FOLLOWUP: Had follow up with Dr. Haynes of Neurosurgery on 02/26/2018, and randy were removed. Next follow-up with Neurosurgery will be 03/26/2017 at 1300. She will have head CT prior to the follow-up appointment. Her primary care provider is Dr. Kaba. This patient needs a walker. She has a mobility limitation that significantly impairs 1 or more mobility related ADLs in the home, she is able to use the walker safely, and functional mobility deficit cannot be resolved with a cane. 03/03/18 12:37 Subjective: No complaints. Desires to continue using walker the physical therapy does not sure she needs it. Objective: Vital Signs Temp Pulse Resp BP Pulse Ox 36.6 C 72 16 111/63 96 03/03/18 06:34 03/03/18 06:34 03/03/18 06:34 03/03/18 06:34 03/03/18 06:34 Laboratory Results 02/18/18 06:00 02/18/18 06:00 03/02/18 03/03/18 03/04/18 05:59 05:59 05:59 Intake Total 490 540 Output Total 650 350 Balance -160 190 Physical Exam - Physical Exam General Appearance: WD/WN, alert, no apparent distress Respiratory: No respiratory distress, No accessory muscle use Skin: normal color, warm/dry Neuro/Psych: no motor/sensory deficits, alert, normal mood/affect, oriented x 3 , No abnormal gait (With front wheeled walker) ICD10 Worksheet Patient Problems: Problems Problem Status Onset Bilateral subdural hematomas Acute
[2018-03-03] MEDS: LATANOPROST 0.005% 2.5 ML OPHT DROPS EACHEYE SCH (20:30)
[2018-03-04] MEDS: CHOLECALCIFEROL VIT D3 1,000 UNITS TAB PO SCH (08:18)
[2018-03-04] MEDS: levETIRAcetam 250 MG TAB PO SCH ×2 (08:19→20:51)
[2018-03-04] MEDS: MULTIVITAMINS 1 EACH TAB PO SCH (08:20)
[2018-03-04] MEDS: TRANEXAMIC ACID 650 MG TAB PO SCH ×2 (08:20→20:51)
[2018-03-04] MEDS: LISINOPRIL 10 MG TAB PO SCH (08:22)
--- NOTE | 2018-03-04 14:44 | SOAPPROG ---
SOAP Progress Note Assessment/Plan: Assessment: * Expressive aphasia, status post bilateral subdural hematomas and craniotomies for evacuation. * Verbal expression distinctly worse 02/22/2018. Head CT without worsening bleed or hydrocephalus. Shows improving blood collections and postsurgical gas etc. Discussed with neurosurgeon Dr. Khan, who recommended initiating levetiracetam at 750 mg p.o. twice daily in case there is subclinical seizure activity causing fluctuations in her expressive language. Begun 02/23/2018 in the evening. Duration will be per Neurosurgery. * Expressive aphasia appears much improved since 02/22/2018. * Continue Speech and Language Pathology to optimize her ability to communicate. * Debility with impaired mobility and activities of daily living. * Initial functional independence measure is 84 on 02/22/2018, improved to 95 as of 03/01/2018. Independent in her room. Ambulated 400 ft with front wheeled walker, independent. Modified independent to independent with activities of daily living. OT advising no driving. * Continue PT and OT to optimize mobility toward the independent level to modified independent level. * Cognitive impairment. * Decreased memory, new learning, problem solving, attention, improving. Therapy staff advising discharge home but with niece or friends to provide supervision for for several days. * Continue PIPELINE TECHNICIAN. * Subdural hematomas, status post bilateral craniotomies. Tranexamic acid discussed with Dr. Haynes. Plan is to continue until subdural hematomas are completely resolved; expect several months. * Hypertension. Continue lisinopril. Adequate control. * Anemia. Slightly worse than when last checked in the hospital; hemoglobin 10.0 on CBC 02/18/2017; was 10.5 on 02/13/2018. Recheck p.r.n. * Urinary incontinence, unclear etiology. Resolved. * Constipation. Continue senna/docusate as ordered out of hospital, and the laxatives can be titrated or augmented as needed. Will also order bisacodyl suppository. * Glaucoma. Continue latanoprost. * Prophylaxis. Her mobility appears to be fairly good. There is a relative contraindication to anticoagulation due to recent bleed. Discharge date set for 03/05/2018. She will have home PT OT and PIPELINE TECHNICIAN. She is advised not to drive and to have a pre driving screen if she wants to return to driving. Advise niece or friends to be with her for for several days after discharge. FOLLOWUP: Had follow up with Dr. Haynes of Neurosurgery on 02/26/2018, and randy were removed. Next follow-up with Neurosurgery will be 03/26/2017 at 1300. She will have head CT prior to the follow-up appointment. Her primary care provider is Dr. Kaba. This patient needs a walker. She has a mobility limitation that significantly impairs 1 or more mobility related ADLs in the home, she is able to use the walker safely, and functional mobility deficit cannot be resolved with a cane. 03/04/18 14:42 Subjective: No complaints. Very concerned about details of medication administration and prescriptions for discharge. Objective: Vital Signs Temp Pulse Resp BP Pulse Ox 36.4 C 77 17 127/76 H 95 03/04/18 09:49 03/04/18 09:49 03/04/18 09:49 03/04/18 09:49 03/04/18 09:49 Laboratory Results 02/18/18 06:00 02/18/18 06:00 03/03/18 03/04/18 03/05/18 05:59 05:59 05:59 Intake Total 540 600 300 Output Total 350 Balance 190 600 300 Physical Exam - Physical Exam General Appearance: WD/WN, alert, no apparent distress Respiratory: No respiratory distress, No accessory muscle use Skin: normal color, warm/dry Neuro/Psych: alert, normal mood/affect, oriented x 3, speech abnormalities ( Expressive aphasia but able to make her needs and concerns known.), other (Or perseverative) ICD10 Worksheet Patient Problems: Problems Problem Status Onset Bilateral subdural hematomas Acute
--- NOTE | 2018-03-04 17:46 | PDOREHIP ---
Admission [facility] - Admission - 3 Day Assessment Period Admission Date/Day 1: 02/17/18 Day 2: 02/18/18 Day 3: 02/19/18 Discharge [facility] - Discharge - 3 Day Assessment Period 2 Days Prior to Anticipated Discharge Date: 03/03/18 1 Day Prior to Anticipated Discharge Date: 03/04/18 Anticipated Discharge Date: 03/05/18 - Discharge Skin Conditions Unhealed Pressure Ulcer (1 or more/Stage 1 or >)-Discharge: 0. No
[2018-03-04] MEDS: LATANOPROST 0.005% 2.5 ML OPHT DROPS EACHEYE SCH (20:51)
[2018-03-05] MEDS: CHOLECALCIFEROL VIT D3 1,000 UNITS TAB PO SCH (08:53)
[2018-03-05] MEDS: levETIRAcetam 250 MG TAB PO SCH (08:53)
[2018-03-05] MEDS: MULTIVITAMINS 1 EACH TAB PO SCH (08:54)
[2018-03-05] MEDS: TRANEXAMIC ACID 650 MG TAB PO SCH (08:54)
[2018-03-05] MEDS: LISINOPRIL 10 MG TAB PO SCH (08:57)
[2018-03-05 08:59] VITALS: BP 123/62
--- NOTE | 2018-03-05 17:10 | GDS ---
[f rep st] DISCHARGE SUMMARY ADMISSION DIAGNOSES: Bilateral subdural hematomas, status post bilateral craniotomies and evacuation with debility, and expressive aphasia. DISCHARGE DIAGNOSES: Bilateral subdural hematomas, status post bilateral craniotomies and evacuation with debility, and expressive aphasia. OTHER DISCHARGE DIAGNOSES: 1. Hypertension. 2. Anemia. 3. Glaucoma. COMPLICATIONS: There were none. PROCEDURES: There were none. CONSULTATIONS: There were none. HISTORY AND HOSPITAL COURSE: This patient was admitted from [facility] where she had been admitted with difficulty speaking and impaired balance. She had had falls several weeks prior. Head CT showed bilateral subdural hematomas. She underwent craniotomy and evacuation per Dr. Haynes of Neurosurgery. She was medically stabilized and discharged to inpatient rehabilitation. She had significant improvement during her stay. Her initial functional independence measure was 84 on 02/22/2018, which is consistent with assisted living level of function. By 03/01/2018, her functional independence measure had improved to 95, which is consistent with a high level of assisted living level of function. She continued to improve and became independent in her room , and on the unit. She ambulated 400 feet with a front-wheeled walker independently. She had independence or modified independence with assistive device with activities of daily living. She required supervision for ambulation with a single-point cane. She was able to climb and descend 18 steps independently using 1 rail. After initial improvement in her expressive language, she had a sudden decline in her ability to express herself on 02/22/2018. Head CT was obtained which showed no significant change. This was discussed with neurosurgeon, Dr. Khan who suggested that she might be having subclinical seizures. She was begun on levetiracetam and subsequently had no significant fluctuations in her function, either regarding language or any other functions. She was evaluated and treated by Speech and Language Pathology regarding expressive aphasia and cognitive issues. She had gains, but continued to have deficits to memory and problem solving, especially with novel or challenging tasks. It was strongly recommended that she have supervision for medication management. She was overall able to make her needs known in terms of expression of language, though she continued to have some expressive aphasia. Blood pressure was well controlled on lisinopril. She continued to take tranexamic acid and per instructions of Neurosurgery, she will continue this medication until her subdural hematomas are completely resolved on brain imaging. CONDITION UPON DISCHARGE: Good. ACTIVITY: Ad kelvin, but she is not to be driving, and she needs supervision for challenging cognitive tasks, such as medication management. DIET: Regular. MEDICATIONS ON DISCHARGE: 1. Acetaminophen 650 mg p.o. q.4 hours p.r.n. 2. Cholecalciferol 1000 units p.o. daily. 3. Latanoprost 0.005% 1 drop each eye at bedtime. 4. Levetiracetam 750 mg p.o. twice daily. 5. Lisinopril 10 mg p.o. daily. 6. Multivitamin 1 p.o. daily. 7. Senna/docusate 1 tab p.o. twice daily p.r.n. 8. Tranexamic acid 650 mg p.o. twice daily. ISSUES TO BE ADDRESSED FOLLOW UP: 1. Functional status and expressive aphasia. She will have home physical therapy, occupational therapy, and speech and language pathology. She is advised to have a pre-driving screen prior to return to driving. Her niece or close friends will be with her in her home for her first several days after discharge. 2. Subdural hematomas. Continue tranexamic acid. She has followup with neurosurgeon, Dr. Haynes be easily scheduled for 03/26/2017, and she will have a head CT prior to the followup appointment. 3. Hypertension is well controlled. She can follow up with primary care provider, Dr. Kaba. 4. Anemia was mostly stable. Her hemoglobin declined somewhat during her stay , and she should have a followup CBC done when she sees her primary care provider. /[id number]/MODL MTDD
== END 2018-03-05 18:18 | disposition home health service (06) | DRG 946 ==
LOC: BREH 15:22
PROVIDERS: ADMIT Internal Medicine; ATTEND Internal Medicine
PROC: F07M3ZZ Motor Function Treatment of Musculoskeletal System - Whole Body (ICD-10-PCS; principal; 2018-02-17)
PROC: F08Z7ZZ Vocational Activities and Functional Community or Work Reintegration Skills Treatment (ICD-10-PCS; principal; 2018-02-17)
PROC: F0636ZZ Communicative/Cognitive Integration Skills Treatment of Neurological System - Whole Body (ICD-10-PCS; principal; 2018-02-17)
DX: S06.5X0D Traumatic subdural hemorrhage without loss of consciousness, subsequent encounter (principal); W00.0XXD Fall on same level due to ice and snow, subsequent encounter; F80.1 Expressive language disorder; R32 Unspecified urinary incontinence; K59.00 Constipation, unspecified; I10 Essential (primary) hypertension; H40.9 Unspecified glaucoma; Z85.038 Personal history of other malignant neoplasm of large intestine; D64.9 Anemia, unspecified
CPT/HCPCS: 92507-GN; 92508-GN; 92522-GN; 97110-GO; 97110-GP; 97112-GO; 97112-GP; 97116-GP; 97161-GP; 97166-GO; 97530-GO; 97530-GP; 97535-GO; G0515-GO

== ENCOUNTER → 2018-03-25 | Outpatient (CLI) | payer OTHER | LOC: FIMAGING 10:43 | PROVIDERS: ATTEND Neurological Surgery | DX: I62.00 Nontraumatic subdural hemorrhage, unspecified (principal) ==

== ENCOUNTER → 2018-07-27 | Outpatient (CLI) | payer OTHER | LOC: FIMAGING 13:22 | PROVIDERS: ATTEND Internal Medicine | DX: Z12.31 Encounter for screening mammogram for malignant neoplasm of breast (principal) ==